=== PATIENT | male | born 1950 | race Caucasian/White ===

== ENCOUNTER 2023-10-11 18:37 | Outpatient (CLI) | payer MEDICARE, BC, SELFPAY ==
[2023-10-15 18:00] LABS: DPYD Phenotype Normal metabolizer
== END 2023-10-11 18:38 | disposition home or self-care (01) ==
LOC: LBO 18:46
PROVIDERS: PCP Internal Medicine; Visit Provider Internal Medicine Hematology & Oncology
DX: C20 Malignant neoplasm of rectum (principal); C78.7 Secondary malignant neoplasm of liver and intrahepatic bile duct
CPT/HCPCS: 36415; 81232

== ENCOUNTER 2023-11-29 02:42 | Outpatient (RCR) | payer MEDICARE, BC, SELFPAY ==
[2023-11-03 09:54] VITALS: BP 138/73; PULSE 92; RESP 16; TEMP 36.5; O2SAT 97
[2023-11-15] MEDS: Normal Saline Flush 10 ML SYR IVP (09:46)
[2023-11-15 10:14] LABS: Abs Immature Grans 0.02 10^3/uL (0.0-0.06); Absolute Basophil Count 0.02 10^3/uL (0.0-0.2); Absolute Eosinophil Count 0.22 10^3/uL (0.0-0.7); Absolute Lymphocyte Count 0.89 10^3/uL (1.2-3.4); Absolute Monocyte Count 0.47 10^3/uL (0.1-0.8); Absolute Neutrophil Count 4.44 10^3/uL (1.2-6.7); Basophils % 0.3; Eosinophils % 3.6; HCT 43.3 % (40.0-50.0); HGB 14.1 g/dL (13.5-17.5); Immature Grans % 0.3; Lymphocytes % 14.7; MCH 27.3 pg (27.0-33.0); MCHC 32.6 % (32.0-36.0); MCV 84 fL (80-95); MPV 9.1 fL (8.0-11.0); Monocytes % 7.8; Neutrophils % 73.3; Platelet Count 230 10^3/uL (130-400); RBC 5.16 10^6/uL (4.36-5.78); RDW 14.6 % (11.8-14.1); RDW-SD 43.9 fL; WBC 6.06 10^3/uL (4.4-10.8)
[2023-11-15 10:23] LABS: ALT 22 U/L (16-63); AST 16 U/L (15-37); Alkaline Phosphatase 92 U/L (46-116); Anion Gap 3.8 mmol/L (3-11); BUN 9 mg/dL (7-18); Bilirubin, Total 0.7 mg/dL (0.2-1.0); CO2 29.2 mmol/L (21.0-32.0); CREATININE 0.8 mg/dL (0.70-1.30); Calcium 8.7 mg/dL (8.5-10.1); Chloride 104 mmol/L (98-107); Estimated GFR 94.62 (mL/min/1.73m2); Glucose 105 mg/dL (74-106); Magnesium 1.8 mg/dL (1.8-2.4); Potassium 3.8 mmol/L (3.5-5.1); Sodium 137 mmol/L (136-145); Total Protein 6.7 g/dL (6.4-8.2)
[2023-11-15 21:11] LABS: CEA 4.5 ng/mL (See Note)
[2023-11-29] MEDS: Normal Saline Flush 10 ML SYR IVP (08:40)
[2023-11-29 09:04] LABS: Abs Immature Grans 0.02 10^3/uL (0.0-0.06); Absolute Basophil Count 0.02 10^3/uL (0.0-0.2); Absolute Eosinophil Count 0.15 10^3/uL (0.0-0.7); Absolute Lymphocyte Count 0.83 10^3/uL (1.2-3.4); Absolute Monocyte Count 0.58 10^3/uL (0.1-0.8); Absolute Neutrophil Count 2.96 10^3/uL (1.2-6.7); Basophils % 0.4; Eosinophils % 3.3; HCT 42.5 % (40.0-50.0); HGB 13.9 g/dL (13.5-17.5); Immature Grans % 0.4; Lymphocytes % 18.2; MCH 27.3 pg (27.0-33.0); MCHC 32.7 % (32.0-36.0); MCV 84 fL (80-95); MPV 8.9 fL (8.0-11.0); Monocytes % 12.7; Platelet Count 166 10^3/uL (130-400); RBC 5.09 10^6/uL (4.36-5.78); RDW 15.4 % (11.8-14.1); RDW-SD 45.2 fL; WBC 4.56 10^3/uL (4.4-10.8)
[2023-11-29 09:22] LABS: ALT 19 U/L (16-63); AST 21 U/L (15-37); Albumin 2.9 g/dL (3.4-5.0); Alkaline Phosphatase 103 U/L (46-116); Anion Gap 7.4 mmol/L (3-11); BUN 10 mg/dL (7-18); Bilirubin, Total 0.7 mg/dL (0.2-1.0); CO2 27.6 mmol/L (21.0-32.0); CREATININE 0.8 mg/dL (0.70-1.30); Calcium 8.9 mg/dL (8.5-10.1); Chloride 104 mmol/L (98-107); Estimated GFR 94.62 (mL/min/1.73m2); Glucose 104 mg/dL (74-106); Magnesium 1.9 mg/dL (1.8-2.4); Sodium 139 mmol/L (136-145); Total Protein 6.7 g/dL (6.4-8.2)
[2023-11-30 13:02] LABS: CEA 4.3 ng/mL (See Note)
== END 2023-12-01 23:59 | disposition home or self-care (01) ==
LOC: INF 02:42
PROVIDERS: PCP Internal Medicine; Visit Provider Internal Medicine Hematology & Oncology
DX: C20 Malignant neoplasm of rectum (principal); C78.7 Secondary malignant neoplasm of liver and intrahepatic bile duct; Z45.2 Encounter for adjustment and management of vascular access device
CPT/HCPCS: 36591; 80053; 96523; 82378; 83735; 85025

== ENCOUNTER 2023-12-27 01:12 | Outpatient (RCR) | payer MEDICARE, BC, SELFPAY ==
[2023-12-02 00:10] VITALS: BP 138/73; PULSE 92; RESP 16; TEMP 36.5
[2023-12-13] MEDS: Normal Saline Flush 10 ML SYR IVP (10:13)
[2023-12-13 10:26] LABS: Abs Immature Grans 0.02 10^3/uL (0.0-0.06); Absolute Basophil Count 0.05 10^3/uL (0.0-0.2); Absolute Eosinophil Count 0.22 10^3/uL (0.0-0.7); Absolute Lymphocyte Count 0.92 10^3/uL (1.2-3.4); Absolute Monocyte Count 0.66 10^3/uL (0.1-0.8); Absolute Neutrophil Count 4.29 10^3/uL (1.2-6.7); Basophils % 0.8; Eosinophils % 3.6; HCT 43.8 % (40.0-50.0); Immature Grans % 0.3; Lymphocytes % 14.9; MCH 26.8 pg (27.0-33.0); MCV 84 fL (80-95); MPV 9.1 fL (8.0-11.0); Monocytes % 10.7; Neutrophils % 69.7; Platelet Count 133 10^3/uL (130-400); RBC 5.23 10^6/uL (4.36-5.78); RDW 15.9 % (11.8-14.1); RDW-SD 46.6 fL; WBC 6.16 10^3/uL (4.4-10.8)
[2023-12-13 10:58] LABS: ALT 20 U/L (16-63); AST 21 U/L (15-37); Alkaline Phosphatase 111 U/L (46-116); Anion Gap 6.6 mmol/L (3-11); BUN 8 mg/dL (7-18); CO2 29.4 mmol/L (21.0-32.0); CREATININE 0.7 mg/dL (0.70-1.30); Calcium 9.1 mg/dL (8.5-10.1); Chloride 104 mmol/L (98-107); Estimated GFR 98.51 (mL/min/1.73m2); Glucose 96 mg/dL (74-106); Magnesium 1.7 mg/dL (1.8-2.4); Potassium 3.5 mmol/L (3.5-5.1); Sodium 140 mmol/L (136-145); Total Protein 6.5 g/dL (6.4-8.2)
[2023-12-13 19:11] LABS: CEA 3.5 ng/mL (See Note)
[2023-12-27 08:21] LABS: Abs Immature Grans 0.02 10^3/uL (0.0-0.06); Absolute Basophil Count 0.02 10^3/uL (0.0-0.2); Absolute Eosinophil Count 0.11 10^3/uL (0.0-0.7); Absolute Lymphocyte Count 0.62 10^3/uL (1.2-3.4); Absolute Monocyte Count 0.33 10^3/uL (0.1-0.8); Absolute Neutrophil Count 2.82 10^3/uL (1.2-6.7); Basophils % 0.5; Eosinophils % 2.8; HCT 41.1 % (40.0-50.0); HGB 13.3 g/dL (13.5-17.5); Immature Grans % 0.5; Lymphocytes % 15.8; MCH 27.4 pg (27.0-33.0); MCHC 32.4 % (32.0-36.0); MCV 85 fL (80-95); MPV 9.5 fL (8.0-11.0); Monocytes % 8.4; Platelet Count 135 10^3/uL (130-400); RBC 4.86 10^6/uL (4.36-5.78); RDW 16.6 % (11.8-14.1); RDW-SD 49.6 fL; WBC 3.92 10^3/uL (4.4-10.8)
[2023-12-27 08:43] LABS: ALT 20 U/L (16-63); AST 26 U/L (15-37); Albumin 2.8 g/dL (3.4-5.0); Alkaline Phosphatase 85 U/L (46-116); BUN 7 mg/dL (7-18); Bilirubin, Total 0.7 mg/dL (0.2-1.0); CREATININE 0.7 mg/dL (0.70-1.30); Chloride 106 mmol/L (98-107); Estimated GFR 98.51 (mL/min/1.73m2); Glucose 152 mg/dL (74-106); Magnesium 1.6 mg/dL (1.8-2.4); Potassium 3.9 mmol/L (3.5-5.1); Sodium 141 mmol/L (136-145); Total Protein 6.3 g/dL (6.4-8.2)
[2023-12-27] MEDS: Normal Saline Flush 10 ML SYR IVP (09:09)
== END 2024-01-01 23:59 | disposition home or self-care (01) ==
LOC: INF 01:12
PROVIDERS: PCP Internal Medicine; Visit Provider Internal Medicine Hematology & Oncology
DX: C20 Malignant neoplasm of rectum (principal); C78.7 Secondary malignant neoplasm of liver and intrahepatic bile duct; Z45.2 Encounter for adjustment and management of vascular access device
CPT/HCPCS: 36591; 80053; 82378; 83735; 85025

== ENCOUNTER 2024-01-24 00:56 | Outpatient (RCR) | payer MEDICARE, BC, SELFPAY ==
[2024-01-02 00:20] VITALS: BP 138/73; PULSE 92; RESP 16; TEMP 36.5
[2024-01-10 10:01] LABS: Abs Immature Grans 0.01 10^3/uL (0.0-0.06); Absolute Basophil Count 0.04 10^3/uL (0.0-0.2); Absolute Lymphocyte Count 0.84 10^3/uL (1.2-3.4); Absolute Monocyte Count 0.46 10^3/uL (0.1-0.8); Basophils % 0.9; Eosinophils % 2.3; HCT 42.4 % (40.0-50.0); HGB 13.5 g/dL (13.5-17.5); Immature Grans % 0.2; Lymphocytes % 19.7; MCHC 31.8 % (32.0-36.0); MCV 85 fL (80-95); MPV 9.3 fL (8.0-11.0); Monocytes % 10.8; Neutrophils % 66.1; Platelet Count 133 10^3/uL (130-400); RDW 16.8 % (11.8-14.1); WBC 4.26 10^3/uL (4.4-10.8)
[2024-01-10 10:04] LABS: Absolute Neutrophil Count 2.82 10^3/uL (1.2-6.7)
[2024-01-10 10:16] LABS: ALT 21 U/L (16-63); AST 30 U/L (15-37); Albumin 2.9 g/dL (3.4-5.0); Alkaline Phosphatase 107 U/L (46-116); Anion Gap 8.4 mmol/L (3-11); BUN 9 mg/dL (7-18); Bilirubin, Total 0.8 mg/dL (0.2-1.0); CO2 27.6 mmol/L (21.0-32.0); CREATININE 0.6 mg/dL (0.70-1.30); Calcium 8.8 mg/dL (8.5-10.1); Chloride 105 mmol/L (98-107); Glucose 97 mg/dL (74-106); Magnesium 1.7 mg/dL (1.8-2.4); Potassium 3.6 mmol/L (3.5-5.1); Sodium 141 mmol/L (136-145); Total Protein 6.3 g/dL (6.4-8.2)
[2024-01-10] MEDS: Normal Saline Flush 10 ML SYR IVP (10:57)
[2024-01-10 18:24] LABS: CEA 3.3 ng/mL (See Note)
[2024-01-24] MEDS: Normal Saline Flush 10 ML SYR IVP (07:59)
[2024-01-24 08:10] LABS: Abs Immature Grans 0.01 10^3/uL (0.0-0.06); Absolute Basophil Count 0.03 10^3/uL (0.0-0.2); Absolute Eosinophil Count 0.13 10^3/uL (0.0-0.7); Absolute Monocyte Count 0.37 10^3/uL (0.1-0.8); Absolute Neutrophil Count 2.14 10^3/uL (1.2-6.7); Basophils % 0.9; HCT 42.7 % (40.0-50.0); HGB 13.8 g/dL (13.5-17.5); Immature Grans % 0.3; Lymphocytes % 18.3; MCH 27.5 pg (27.0-33.0); MCHC 32.3 % (32.0-36.0); MCV 85 fL (80-95); MPV 9.7 fL (8.0-11.0); Monocytes % 11.3; Neutrophils % 65.2; Platelet Count 116 10^3/uL (130-400); RBC 5.02 10^6/uL (4.36-5.78); RDW-SD 51.3 fL; WBC 3.28 10^3/uL (4.4-10.8)
[2024-01-24 08:28] LABS: ALT 22 U/L (16-63); AST 33 U/L (15-37); Albumin 2.8 g/dL (3.4-5.0); Alkaline Phosphatase 113 U/L (46-116); Anion Gap 8.7 mmol/L (3-11); BUN 5 mg/dL (7-18); CO2 29.3 mmol/L (21.0-32.0); CREATININE 0.7 mg/dL (0.70-1.30); Chloride 105 mmol/L (98-107); Estimated GFR 98.51 (mL/min/1.73m2); Glucose 147 mg/dL (74-106); Magnesium 1.6 mg/dL (1.8-2.4); Potassium 3.5 mmol/L (3.5-5.1); Sodium 143 mmol/L (136-145); Total Protein 6.3 g/dL (6.4-8.2)
[2024-01-24 18:25] LABS: CEA 4.4 ng/mL (See Note)
== END 2024-01-30 23:59 | disposition home or self-care (01) ==
LOC: INF 00:56
PROVIDERS: PCP Internal Medicine; Visit Provider Internal Medicine Hematology & Oncology
DX: C20 Malignant neoplasm of rectum (principal); C78.7 Secondary malignant neoplasm of liver and intrahepatic bile duct; Z45.2 Encounter for adjustment and management of vascular access device
CPT/HCPCS: 36591; 80053; 82378; 83735; 85025

== ENCOUNTER 2024-02-21 01:01 | Outpatient (RCR) | payer MEDICARE, BC, SELFPAY ==
[2024-01-31 00:07] VITALS: BP 138/73; PULSE 92; RESP 16; TEMP 36.5
[2024-02-07] MEDS: Normal Saline Flush 10 ML SYR IVP (09:37)
[2024-02-07 10:15] LABS: Abs Immature Grans 0.01 10^3/uL (0.0-0.06); Absolute Basophil Count 0.02 10^3/uL (0.0-0.2); Absolute Eosinophil Count 0.07 10^3/uL (0.0-0.7); Absolute Lymphocyte Count 0.71 10^3/uL (1.2-3.4); Absolute Monocyte Count 0.47 10^3/uL (0.1-0.8); Absolute Neutrophil Count 1.75 10^3/uL (1.2-6.7); Basophils % 0.7; Eosinophils % 2.3; HGB 13.4 g/dL (13.5-17.5); Immature Grans % 0.3; Lymphocytes % 23.4; MCH 27.5 pg (27.0-33.0); MCHC 31.9 % (32.0-36.0); MCV 86 fL (80-95); MPV 9.2 fL (8.0-11.0); Monocytes % 15.5; Neutrophils % 57.8; Platelet Count 115 10^3/uL (130-400); RBC 4.88 10^6/uL (4.36-5.78); RDW-SD 52.7 fL; WBC 3.03 10^3/uL (4.4-10.8)
[2024-02-07 10:38] LABS: ALT 22 U/L (16-63); AST 36 U/L (15-37); Albumin 2.8 g/dL (3.4-5.0); Alkaline Phosphatase 99 U/L (46-116); Anion Gap 4.8 mmol/L (3-11); BUN 8 mg/dL (7-18); Bilirubin, Total 0.9 mg/dL (0.2-1.0); CO2 30.2 mmol/L (21.0-32.0); CREATININE 0.7 mg/dL (0.70-1.30); Chloride 107 mmol/L (98-107); Estimated GFR 98.51 (mL/min/1.73m2); Glucose 111 mg/dL (74-106); Magnesium 1.5 mg/dL (1.8-2.4); Potassium 3.7 mmol/L (3.5-5.1); Sodium 142 mmol/L (136-145); Total Protein 6.3 g/dL (6.4-8.2)
[2024-02-07 20:50] LABS: CEA 3.9 ng/mL (See Note)
[2024-02-21] MEDS: Normal Saline Flush 10 ML SYR IVP (08:20)
[2024-02-21 08:33] LABS: Abs Immature Grans 0.03 10^3/uL (0.0-0.06); Absolute Basophil Count 0.03 10^3/uL (0.0-0.2); Absolute Eosinophil Count 0.11 10^3/uL (0.0-0.7); Absolute Lymphocyte Count 0.76 10^3/uL (1.2-3.4); Absolute Monocyte Count 0.43 10^3/uL (0.1-0.8); Absolute Neutrophil Count 5.93 10^3/uL (1.2-6.7); Basophils % 0.4; Eosinophils % 1.5; HCT 41.3 % (40.0-50.0); HGB 13.1 g/dL (13.5-17.5); Immature Grans % 0.4; Lymphocytes % 10.4; MCH 27.6 pg (27.0-33.0); MCHC 31.7 % (32.0-36.0); MCV 87 fL (80-95); MPV 9.5 fL (8.0-11.0); Monocytes % 5.9; Neutrophils % 81.4; Platelet Count 141 10^3/uL (130-400); RBC 4.74 10^6/uL (4.36-5.78); RDW 16.8 % (11.8-14.1); RDW-SD 54.3 fL; WBC 7.29 10^3/uL (4.4-10.8)
[2024-02-21 08:52] LABS: ALT 60 U/L (16-63); AST 93 U/L (15-37); Albumin 2.7 g/dL (3.4-5.0); Alkaline Phosphatase 167 U/L (46-116); Anion Gap 8.6 mmol/L (3-11); BUN 8 mg/dL (7-18); Bilirubin, Total 1.2 mg/dL (0.2-1.0); CO2 26.4 mmol/L (21.0-32.0); CREATININE 0.7 mg/dL (0.70-1.30); Calcium 8.8 mg/dL (8.5-10.1); Chloride 107 mmol/L (98-107); Estimated GFR 98.51 (mL/min/1.73m2); Glucose 131 mg/dL (74-106); Magnesium 1.7 mg/dL (1.8-2.4); Potassium 3.8 mmol/L (3.5-5.1); Sodium 142 mmol/L (136-145); Total Protein 6.6 g/dL (6.4-8.2)
[2024-02-21 17:21] LABS: CEA 2.6 ng/mL (See Note)
== END 2024-03-01 23:59 | disposition home or self-care (01) ==
LOC: INF 01:01
PROVIDERS: PCP Internal Medicine; Visit Provider Internal Medicine Hematology & Oncology
DX: C20 Malignant neoplasm of rectum (principal); C78.7 Secondary malignant neoplasm of liver and intrahepatic bile duct; Z45.2 Encounter for adjustment and management of vascular access device
CPT/HCPCS: 36591; 80053; 82378; 83735; 85025

== ENCOUNTER 2024-03-20 01:41 | Outpatient (RCR) | payer MEDICARE, BC, SELFPAY ==
[2024-03-02 00:04] VITALS: BP 138/73; PULSE 92; RESP 16; TEMP 36.5
[2024-03-06] MEDS: Normal Saline Flush 10 ML SYR IVP (09:12)
[2024-03-06 09:25] LABS: Abs Immature Grans 0.01 10^3/uL (0.0-0.06); Absolute Basophil Count 0.02 10^3/uL (0.0-0.2); Absolute Eosinophil Count 0.13 10^3/uL (0.0-0.7); Absolute Lymphocyte Count 0.64 10^3/uL (1.2-3.4); Absolute Monocyte Count 0.38 10^3/uL (0.1-0.8); Absolute Neutrophil Count 2.72 10^3/uL (1.2-6.7); Basophils % 0.5; Eosinophils % 3.3; HCT 38.5 % (40.0-50.0); HGB 12.7 g/dL (13.5-17.5); Immature Grans % 0.3; Lymphocytes % 16.4; MCH 28.5 pg (27.0-33.0); MCV 87 fL (80-95); MPV 9.2 fL (8.0-11.0); Monocytes % 9.7; Neutrophils % 69.8; Platelet Count 126 10^3/uL (130-400); RBC 4.45 10^6/uL (4.36-5.78); RDW 15.6 % (11.8-14.1); RDW-SD 48.9 fL
[2024-03-06 09:41] LABS: ALT 24 U/L (16-63); AST 39 U/L (15-37); Albumin 2.8 g/dL (3.4-5.0); Alkaline Phosphatase 114 U/L (46-116); Anion Gap 8.4 mmol/L (3-11); BUN 9 mg/dL (7-18); Bilirubin, Total 0.8 mg/dL (0.2-1.0); CO2 28.6 mmol/L (21.0-32.0); CREATININE 0.7 mg/dL (0.70-1.30); Calcium 8.9 mg/dL (8.5-10.1); Chloride 105 mmol/L (98-107); Estimated GFR 98.51 (mL/min/1.73m2); Glucose 94 mg/dL (74-106); Magnesium 1.5 mg/dL (1.8-2.4); Potassium 3.8 mmol/L (3.5-5.1); Sodium 142 mmol/L (136-145); Total Protein 6.4 g/dL (6.4-8.2)
[2024-03-06 18:00] LABS: CEA 2.8 ng/mL (See Note)
[2024-03-20] MEDS: Normal Saline Flush 10 ML SYR IVP (09:05)
[2024-03-20 09:32] LABS: Absolute Basophil Count 0.01 10^3/uL (0.0-0.2); Absolute Eosinophil Count 0.06 10^3/uL (0.0-0.7); Absolute Monocyte Count 0.26 10^3/uL (0.1-0.8); Absolute Neutrophil Count 1.38 10^3/uL (1.2-6.7); Basophils % 0.4; Eosinophils % 2.6; HCT 37.6 % (40.0-50.0); HGB 12.1 g/dL (13.5-17.5); MCH 27.7 pg (27.0-33.0); MCHC 32.2 % (32.0-36.0); MCV 86 fL (80-95); MPV 8.9 fL (8.0-11.0); Monocytes % 11.3; Neutrophils % 59.7; Platelet Count 132 10^3/uL (130-400); RBC 4.37 10^6/uL (4.36-5.78); RDW 15.2 % (11.8-14.1); RDW-SD 47.8 fL; WBC 2.31 10^3/uL (4.4-10.8)
[2024-03-20 09:47] LABS: ALT 19 U/L (16-63); AST 25 U/L (15-37); Albumin 2.8 g/dL (3.4-5.0); Alkaline Phosphatase 98 U/L (46-116); Anion Gap 5.7 mmol/L (3-11); BUN 13 mg/dL (7-18); Bilirubin, Total 0.6 mg/dL (0.2-1.0); CO2 29.3 mmol/L (21.0-32.0); CREATININE 0.8 mg/dL (0.70-1.30); Calcium 8.9 mg/dL (8.5-10.1); Chloride 107 mmol/L (98-107); Estimated GFR 94.62 (mL/min/1.73m2); Glucose 107 mg/dL (74-106); Magnesium 1.9 mg/dL (1.8-2.4); Potassium 3.6 mmol/L (3.5-5.1); Sodium 142 mmol/L (136-145); Total Protein 6.4 g/dL (6.4-8.2)
[2024-03-20 18:19] LABS: CEA 2.8 ng/mL (See Note)
== END 2024-03-31 23:59 | disposition home or self-care (01) ==
LOC: INF 01:41
PROVIDERS: PCP Internal Medicine; Visit Provider Internal Medicine Hematology & Oncology
DX: C20 Malignant neoplasm of rectum (principal); C78.7 Secondary malignant neoplasm of liver and intrahepatic bile duct; C79.51 Secondary malignant neoplasm of bone; Z79.899 Other long term (current) drug therapy; Z45.2 Encounter for adjustment and management of vascular access device
CPT/HCPCS: 36591; 80053; 82378; 83735; 85025

== ENCOUNTER 2024-05-01 00:36 | Outpatient (RCR) | payer MEDICARE, SELFPAY ==
[2024-04-01 00:20] VITALS: BP 138/73; PULSE 92; RESP 16; TEMP 36.5
[2024-04-03] MEDS: Normal Saline Flush 10 ML SYR IVP (09:02)
[2024-04-03 09:16] LABS: HGB 12.1 g/dL (13.5-17.5); MCH 27.5 pg (27.0-33.0); MCHC 31.8 % (32.0-36.0); MCV 86 fL (80-95); MPV 8.9 fL (8.0-11.0); Platelet Count 138 10^3/uL (130-400); RDW 15.3 % (11.8-14.1); RDW-SD 48.1 fL
[2024-04-03 09:23] LABS: Bilirubin Small (Negative); Blood Negative (Negative); Clarity Clear (Clear); Glucose Negative (Negative); Ketones Trace mg/dL (Negative); Leukocyte Esterase Negative (Negative); Nitrite Negative (Negative); Specific Gravity 1.025 (1.005-1.025); pH 5.5 (5-8)
[2024-04-03 09:29] LABS: ALT 19 U/L (16-63); AST 26 U/L (15-37); Albumin 2.8 g/dL (3.4-5.0); Alkaline Phosphatase 100 U/L (46-116); Anion Gap 5.8 mmol/L (3-11); BUN 8 mg/dL (7-18); Bilirubin, Total 0.8 mg/dL (0.2-1.0); CO2 31.2 mmol/L (21.0-32.0); CREATININE 0.8 mg/dL (0.70-1.30); Calcium 8.8 mg/dL (8.5-10.1); Chloride 105 mmol/L (98-107); Estimated GFR 94.62 (mL/min/1.73m2); Glucose 133 mg/dL (74-106); Magnesium 1.9 mg/dL (1.8-2.4); Potassium 3.4 mmol/L (3.5-5.1); Sodium 142 mmol/L (136-145); Total Protein 6.3 g/dL (6.4-8.2)
[2024-04-03 09:43] LABS: WBC 1.78 10^3/uL (4.4-10.8)
[2024-04-03 09:44] LABS: Absolute Eosinophil Count 0.11 10^3/uL (0.0-0.7); Absolute Lymphocyte Count 0.73 10^3/uL (1.2-3.4); Absolute Monocyte Count 0.18 10^3/uL (0.1-0.8); Absolute Neutrophil Count 0.77 10^3/uL (1.2-6.7); Atypical Lymphocytes % 4 %; Diff Comment Manual Differential; RBC Morphology Normal
[2024-04-03 18:23] LABS: CEA 2.5 ng/mL (See Note)
[2024-04-17] MEDS: Normal Saline Flush 10 ML SYR IVP (09:13)
[2024-04-17 09:22] LABS: Abs Immature Grans 0.03 10^3/uL (0.0-0.06); Absolute Basophil Count 0.05 10^3/uL (0.0-0.2); Absolute Eosinophil Count 0.11 10^3/uL (0.0-0.7); Absolute Monocyte Count 0.67 10^3/uL (0.1-0.8); Absolute Neutrophil Count 5.86 10^3/uL (1.2-6.7); Basophils % 0.7 %; Eosinophils % 1.5 %; HCT 38.9 % (40.0-50.0); HGB 12.3 g/dL (13.5-17.5); Immature Grans % 0.4 %; Lymphocytes % 10.6 %; MCH 27.9 pg (27.0-33.0); MCHC 31.6 % (32.0-36.0); MCV 88 fL (80-95); MPV 9.4 fL (8.0-11.0); Monocytes % 8.9 %; Neutrophils % 77.9 %; Platelet Count 190 10^3/uL (130-400); RBC 4.41 10^6/uL (4.36-5.78); RDW 16.2 % (11.8-14.1); RDW-SD 53.1 fL; WBC 7.52 10^3/uL (4.4-10.8)
[2024-04-17 09:25] LABS: Bilirubin Negative (Negative); Blood Small (Negative); Clarity Sl Cloudy (Clear); Glucose Negative (Negative); Ketones Negative (Negative); Leukocyte Esterase Small (Negative); Nitrite Negative (Negative); Specific Gravity 1.015 (1.005-1.025)
[2024-04-17 09:34] LABS: Bacteria Rare HPF (Negative); C & S Indicated? Yes; Casts Negative LPF (Negative); Crystals Negative HPF (Negative); Epithelial Cells Few HPF (Negative); Mucus Trace (Negative); WBC 20-50 HPF (0-5)
[2024-04-17 09:38] LABS: ALT 39 U/L (16-63); AST 64 U/L (15-37); Albumin 2.8 g/dL (3.4-5.0); Alkaline Phosphatase 182 U/L (46-116); Anion Gap 6.8 mmol/L (3-11); BUN 11 mg/dL (7-18); Bilirubin, Total 0.9 mg/dL (0.2-1.0); CO2 27.2 mmol/L (21.0-32.0); CREATININE 0.7 mg/dL (0.70-1.30); Calcium 8.7 mg/dL (8.5-10.1); Chloride 103 mmol/L (98-107); Estimated GFR 98.51 (mL/min/1.73m2); Glucose 95 mg/dL (74-106); Potassium 4.4 mmol/L (3.5-5.1); Sodium 137 mmol/L (136-145); Total Protein 6.7 g/dL (6.4-8.2)
[2024-04-17 19:02] LABS: CEA 2.1 ng/mL (See Note)
[2024-05-01] MEDS: Normal Saline Flush 10 ML SYR IVP (07:54)
[2024-05-01 08:18] LABS: Abs Immature Grans 0.02 10^3/uL (0.0-0.06); Absolute Basophil Count 0.01 10^3/uL (0.0-0.2); Absolute Lymphocyte Count 0.32 10^3/uL (1.2-3.4); Absolute Neutrophil Count 3.16 10^3/uL (1.2-6.7); Basophils % 0.2 %; HCT 35.3 % (40.0-50.0); HGB 11.4 g/dL (13.5-17.5); Immature Grans % 0.5 %; MCH 27.6 pg (27.0-33.0); MCHC 32.3 % (32.0-36.0); MCV 86 fL (80-95); Monocytes % 12.5 %; Neutrophils % 78.8 %; Platelet Count 171 10^3/uL (130-400); RBC 4.13 10^6/uL (4.36-5.78); RDW 15.5 % (11.8-14.1); WBC 4.01 10^3/uL (4.4-10.8)
[2024-05-01 08:26] LABS: Bilirubin Moderate (Negative); Blood Large (Negative); Clarity Sl Cloudy (Clear); Glucose Negative (Negative); Ketones Trace mg/dL (Negative); Leukocyte Esterase Trace (Negative); Nitrite Negative (Negative); Specific Gravity 1.025 (1.005-1.025); pH 5.5 (5-8)
[2024-05-01 08:27] LABS: C & S Indicated? Yes; RBC >50 HPF (0-2)
[2024-05-01 08:36] LABS: ALT 130 U/L (16-63); AST 219 U/L (15-37); Albumin 2.7 g/dL (3.4-5.0); Alkaline Phosphatase 292 U/L (46-116); Anion Gap 9.7 mmol/L (3-11); BUN 14 mg/dL (7-18); Bilirubin, Total 1.6 mg/dL (0.2-1.0); CO2 26.3 mmol/L (21.0-32.0); Chloride 101 mmol/L (98-107); Estimated GFR 80.47 (mL/min/1.73m2); Glucose 153 mg/dL (74-106); Sodium 137 mmol/L (136-145); Total Protein 6.7 g/dL (6.4-8.2)
[2024-05-01 18:26] LABS: CEA 2.6 ng/mL (See Note)
== END 2024-05-01 23:59 | disposition home or self-care (01) ==
LOC: INF 00:36
PROVIDERS: PCP Internal Medicine; Visit Provider Internal Medicine Hematology & Oncology
DX: C79.9 Secondary malignant neoplasm of unspecified site (principal); C20 Malignant neoplasm of rectum; Z79.899 Other long term (current) drug therapy; C78.7 Secondary malignant neoplasm of liver and intrahepatic bile duct; Z45.2 Encounter for adjustment and management of vascular access device
CPT/HCPCS: 36591; 80053; 81003; 81015; 82378; 83735; 85025; 87086

== ENCOUNTER 2024-05-01 09:26 | Inpatient (IN) | payer MEDICARE, BC, SELFPAY ==
[2024-05-01] VITALS (61 sets, daily range): BP systolic 78–142; BP diastolic 41–100; PULSE 88–161; RESP 16–37; TEMP 36.6–39.1; O2SAT 88–99
--- NOTE | 2024-05-01 09:43 | ED.GENADUL_ITS ---
Discharge Plan Disposition Patient Disposition: Admit to [facility] Condition: Stable Discharge Details Clinical Impression: Urinary tract infection, Hydronephrosis of right kidney Admit Date/Time: 05/01/24 13:17 Admit Provider: Hang Corley Attending Provider: Hang Corley Primary Care Provider: Erick Perez ED Provider: Jan Meadows [facility] General Date/Time Provider Initiated Documentation: 05/01/24 09:36 . HPI Narrative: 73 year-old male with stage IV colon CA with known liver mets and known sacral bone lesion, presents to ED today by POV/ambulating with a chief complaint of se nt from outpatient lab draw, abnormal labs, and having R flank pain with onset since last night- episode of bloody urine earlier today. Quality described as severe flank pain, chills, some radiation down the anterior R abdomen, no radiation to fever, shortness of breath, chest pain, vomiting. Severity is described as 9/10. Palliating factors include nothing specific attempted. Provoking factors include nothing specific. Events leading up to the incident/Associated Symptoms: Patient last had chemotherapy for about 2 weeks ago. Patient not anticoagulated. Related Data Home Medications Medication Instructions Recorded Confirmed Unknown [No Known Home Meds] 05/01/24 05/01/24 General Stated Complaint: FlankPain BLANCHE: 3 Review of Systems All systems reviewed & are unremarkable except as noted in HPI and below Exam Narrative Exam Narrative: GENERAL APPEARANCE: Well-nourished, non-toxic, awake and alert, atraumatic, no acute distress. SKIN: Warm, pink, dry, intact, without rashes/lesions/ulcerations. HEAD: Normocephalic, atraumatic, normal hair distribution for gender/age. EYES: Pupils PERRLA, EOMs intact without nystagmus, normal conjunctiva, no exudates on lids/lashes. ENT: Nares patent, no circumoral cyanosis, no facial swelling NECK: Supple, trachea midline, painless cervical ROM. LUNGS/CHEST: Lungs CTA bilaterally- no rhonchi/rales/wheezes diffusely, non- labored respirations, normal A/P diameter, symmetrical expansion, no chest wall deformity HEART (CV/PV): Regular rate and rhythm without murmur, no peripheral edema, no JVD. ABDOMEN: Soft, non-distended, no guarding, no anterior abdominal tenderness, R CVA tenderness to percussion, negative Pickens's sign, no McBurney's point tenderness. MSK: Normal ROM, no swelling/deformity to bilateral UEs or LEs, moving all extremities without weakness, no cyanosis, spine midline without tenderness, normal curvature. NEURO: Mental Status AAOx4 - alert to person, place, time, events No facial droop, no forehead involvement. Motor: No focal weakness - strength 5/5 in bilateral UEs and LEs, proximal and distal, symmetric. Sensory: sensation intact to light touch globally. Gait normal: patient ambulated without ataxia into ED room. PSYCH: euthymic, cooperative, pleasant, appropriate speech Course Vital Signs Vital signs: Vital Signs Temperature 37.4 C 05/01/24 09:32 Pulse 92 H 05/01/24 09:32 Respiratory Rate 18 05/01/24 09:32 Blood Pressure 142/62 H 05/01/24 09:32 Pulse Oximetry 96 05/01/24 09:32 Temperature 37.4 C 05/01/24 09:32 Temperature Source Temporal Artery Scan 05/01/24 09:32 Pulse 92 H 05/01/24 09:32 Respiratory Rate 18 05/01/24 09:32 Blood Pressure 142/62 H 05/01/24 09:32 Blood Pressure Position Sitting 05/01/24 09:32 Pulse Oximetry 96 05/01/24 09:32 Oxygen Delivery Method Room Air 05/01/24 09:32 Oxygen Flow Rate 0 05/01/24 09:32 Medical Decision Making This dictation utilizes [id number] dictation software and may contain unedited grammatical errors. 73 y/o M presents to ED today with a chief complaint of fever and shaking, right flank pain with hematuria, patient is an active stage IV colon cancer patient with known large liver mets and sacral mets. He has no known history of right- sided renal stones, endorses onset since last night and had outpatient labs performed at cancer center today. The last time he received chemotherapy was 2 weeks ago. Patient is actively treating his cancer and would like to continue to do so. Patients' medical history: Stage IV colon cancer, kidney stones. Family and social history: Lives at home with his who is a former nurse, eats well, exercises. Pertinent exam findings / vital signs include right CVA tenderness with mild anterior right-sided abdominal tenderness, nontoxic vitals, neuro intact. Differential / pathologies of concern include obstructive uropathy, sepsis, UTI, renal colic. Diagnostic studies of: -UA, lactate, lipase, liver panel, procalcitonin, CT abdomen pelvis with and without contrast, blood cultures. -Labs earlier today show white blood cell count of 4, patient has active cancer, hemoglobin is 11.4 - no RUBA on metabolic panel -Lactate mildly elevated at 1.8, procal 0.5, concern sepsis -UA shows 10-20 WBCs -Lipase wnl -LFTs are elevated chronically with known liver mets -CT shows R ureter dilated without radioopaque stone- possible passed kidney stone, some R sided hydronephrosis and known chronic metastatic findings Interventions of: -IV Saline, IV Tylenol 1g, 15mg IV Ketorlac, 4mg IV Zofran, 0.5 hydromorphone q4hr, IV Ceftriaxone. -Consulted hospitalist, left message for Dr. Cat but he is out of office on Fridays ED Course/Assessment/Plan: 73-year-old male presents with rigors and shakes, has right sided flank pain as well as some hematuria, he is a known stage IV colon cancer patient with liver and sacral mets. He last had chemotherapy 2 weeks ago, he is immune suppressed, I am concerned for possible sepsis with elevated procalcitonin and mildly elevated lactate. He has evidence of UTI on UA and evidence of possible non- radiopaque stone versus passed stone, I have a low suspicion for non-radiopaque stone as he has radiopaque calculi contralaterally. Patient has remained afebrile by oral temp here but is in rigors here in the department, giving IV fluids and antibiotics and plan to admit the patient to the hospitalist service. Dr. Corley accepted for admission at 1330. Findings not consistent with ureteral stone, complete urinary obstruction - is making urine here in ED. Disposition of hydronephrosis of right kidney, urinary tract infection. Patient verbalized understanding of the plan and return to ED criteria and engaged in shared decision making. Medical Records Medical records reviewed: Yes I reviewed the patient's medical records. Imaging Data Radiologic Study: Attestation: I personally reviewed and interpreted this imaging study as follows: Imaging: CT Scan Radiologist's impression: EXAM: CT ABDOMEN PELVIS WO/W CLINICAL HISTORY: renal colic, active stage 4 colon CA w liver mets. TECHNIQUE: Imaging Protocol: Axial computed tomography images with coronal and sagittal reformatted images were created and reviewed. COMPARISON: No exams were available for comparison FINDINGS: Lung Bases: Lymph node anterior to heart. Mild nodularity along the pleural surface of the diaphragm. Liver: Normal density. Large mass involving portion of left an large portion of the right lobe. Gallbladder and biliary tract: No radiodense calculus. No biliary ductal dilation. Pancreas: No abnormal calcifications or inflammatory process. Spleen: Normal size. Kidneys: Right kidney enlarged. Moderate hydronephrosis. Delay in right nephrogram.Multiple small nonobstructing stones involving the right kidney. Right ureter is dilated to the level of the distal ureter. No obstructing stone is visible. No masses seen. Adrenal glands: No mass is seen. Lymph nodes: Large lymph nodes are present in the region of the eddie hepatis and celiac axis. Multiple small but abnormal enlarged para-aortic lymph nodes. Vasculature: Abdominal aorta non-dilated. Bladder:Empty. No stone visible. Bowel: No obstruction. Diverticulosis of descending and sigmoid colon.. Focal area of bowel wall thickening in the descending colon with some stranding in the surrounding fat. Findings could represent diverticulitis versus mass. Appendix normal. Peritoneal cavity: No ascites.No free air. No focal collection. Reproductive organs: Within normal limits. Bones: Destructive lesion seen in low sacrum. Soft Tissues: Small fat containing right inguinal hernia IMPRESSION: Moderate right hydronephrosis. Ureter is dilated to the level of the lower ureter. No obstructing stone is seen. Findings could be secondary to a recently passed stone. Large liver metastases. Extensive adenopathy in the eddie hepatis. Abnormal nodes also seen in the para- aortic and pericardial regions. Destructive bony lesion in the sacrum. Question of mass versus focal area of diverticulitis in the upper descending colon. Lab Data Lab results reviewed: Yes I reviewed the patient's lab results. Labs: 05/01/24 11:20 Blood Blood Culture - Pending 05/01/24 10:47 Blood Blood Culture - Pending 05/01/24 09:40 Urine - Reflex from Ua Urine Culture - Pending Laboratory Tests Range/Units 05/01/24 05/01/24 09:40 10:47 VBG Lactate (0.6-1.4) mmol/L 1.8 H Total Bilirubin (0.2-1.0) mg/dL 1.6 H Conjugated Bilirubin (0.0-0.2) mg/dL 0.7 H AST (15-37) U/L 186 H ALT (16-63) U/L 127 H Alkaline Phosphatase (46-116) U/L 296 H Total Protein (6.4-8.2) g/dL 6.8 Albumin (3.4-5.0) g/dL 2.8 L Lipase (16-77) U/L 15 L Procalcitonin ng/mL 0.5 Urine Color (Yellow) Yellow Urine Clarity (Clear) Cloudy Urine pH (5-8) 5.5 Ur Specific [place] (1.005-1.025) 1.020 Urine Protein (Neg-Trace) mg/dL 30 H Urine Ketones (Negative) mg/dL Negative Urine Blood (Negative) Large H Urine Nitrite (Negative) Negative Urine Bilirubin (Negative) Small H Urine Urobilinogen (Up to 0.2) mg/dL 1.0 H Ur Leukocyte Esterase (Negative) Trace H Urine RBC (0-2) HPF >50 H Urine WBC (0-5) HPF 10-20 H Ur Epithelial Cells (Negative) HPF Rare Urine Crystals (Negative) HPF Negative Urine Bacteria (Negative) HPF Few Urine Casts (Negative) LPF Negative Urine Mucus (Negative) Trace Ur Culture Indicated? Yes Urine Glucose (Negative) mg/dL Negative Quality:SDOH Health Related Social Needs: No Data to Display PFSH All Active Problems (Updated 05/01/24 @ 14:25 by JESSICA ABRAHAM) Hydronephrosis of right kidney (Acute) Urinary tract infection (Acute) Social History Smoking risk assessment performed?: No Alcohol Intake: former
[2024-05-01 09:48] LABS: Bilirubin Small (Negative); Blood Large (Negative); Clarity Cloudy (Clear); Glucose Negative (Negative); Ketones Negative (Negative); Leukocyte Esterase Trace (Negative); Nitrite Negative (Negative); pH 5.5 (5-8)
[2024-05-01 09:56] LABS: RBC >50 HPF (0-2)
[2024-05-01 09:58] LABS: Bacteria Few HPF (Negative); C & S Indicated? Yes; Casts Negative LPF (Negative); Crystals Negative HPF (Negative); Epithelial Cells Rare HPF (Negative); Mucus Trace (Negative)
--- NOTE | 2024-05-01 10:00 | DI.CT_ITS ---
Exam(s) CT ABDOMEN PELVIS WO/W EXAM: CT ABDOMEN PELVIS WO/W CLINICAL HISTORY: renal colic, active stage 4 colon CA w liver mets. TECHNIQUE: Imaging Protocol: Axial computed tomography images with coronal and sagittal reformatted images were created and reviewed. COMPARISON: No exams were available for comparison FINDINGS: Lung Bases: Lymph node anterior to heart. Mild nodularity along the pleural surface of the diaphragm. Liver: Normal density. Large mass involving portion of left an large portion of the right lobe. Gallbladder and biliary tract: No radiodense calculus. No biliary ductal dilation. Pancreas: No abnormal calcifications or inflammatory process. Spleen: Normal size. Kidneys: Right kidney enlarged. Moderate hydronephrosis. Delay in right nephrogram.Multiple small n onobstructing stones involving the right kidney. Right ureter is dilated to the level of the distal ureter. No obstructing stone is visible. No masses seen. Adrenal glands: No mass is seen. Lymph nodes: Large lymph nodes are present in the region of the eddie hepatis and celiac axis. Multip le small but abnormal enlarged para-aortic lymph nodes. Vasculature: Abdominal aorta non-dilated. Bladder:Empty. No stone visible. Bowel: No obstruction. Diverticulosis of descending and sigmoid colon.. Focal area of bowel wall thic kening in the descending colon with some stranding in the surrounding fat. Findings could represent d iverticulitis versus mass. Appendix normal. Peritoneal cavity: No ascites.No free air. No focal collection. Reproductive organs: Within normal limits. Bones: Destructive lesion seen in low sacrum. Soft Tissues: Small fat containing right inguinal hernia IMPRESSION: Moderate right hydronephrosis. Ureter is dilated to the level of the lower ureter. No obstructing sto ne is seen. Findings could be secondary to a recently passed stone. Large liver metastases. Extensive adenopathy in the eddie hepatis. Abnormal nodes also seen in the para-aortic and pericardia l regions. Destructive bony lesion in the sacrum. Question of mass versus focal area of diverticulitis in the upper descending colon. Findings called to Dr. Resendez of the emergency department. RADIATION DOSE DELIVERED: 2,804.29mGy.cm Total DLP 2,804.29mGy.cm Total DLP 2,804.29mGy.cm Total DLP DATA REPOSITORY: All CT scans at this facility are submitted to the National Radiology Data Registry (NRDR) Dose Index Registry (DIR) with the [employer] (ACR). RADIATION OPTIMIZATION: All CT scans at this facility use at least one of these dose optimization te chniques: automated exposure control; mA and/or kV adjustment per patient size (includes targeted exa ms where dose is matched to clinical indication); or iterative reconstruction.
[2024-05-01] MEDS: ACETAMINOPHEN 1,000 MG/100 ML BTL 400 MG IVPB (10:50)
[2024-05-01] MEDS: Ketorolac 15 MG/ML VIAL IVP (10:51)
[2024-05-01] MEDS: HYDROmorphone 2 MG/ML SYR 0.5 MG IVP (10:52)
[2024-05-01 10:54] LABS: Lactate 1.8 mmol/L (0.6-1.4)
[2024-05-01] MEDS: Ondansetron 4 MG/2 ML VIAL IVP (10:57)
[2024-05-01 11:15] LABS: ALT 127 U/L (16-63); AST 186 U/L (15-37); Albumin 2.8 g/dL (3.4-5.0); Alkaline Phosphatase 296 U/L (46-116); Bilirubin, Direct 0.7 mg/dL (0.0-0.2); Bilirubin, Total 1.6 mg/dL (0.2-1.0); Lipase 15 U/L (16-77); Total Protein 6.8 g/dL (6.4-8.2)
[2024-05-01 11:26] LABS: Procalcitonin 0.5 ng/mL
[2024-05-01] MEDS: Omnipaque 350 MG/ML 100 ML BTL IJ (11:38)
[2024-05-01] MEDS: Normal Saline 1,000 ML 1000 ML IV (13:23)
[2024-05-01] MEDS: cefTRIAXone 2 GM/50 ML BAG IVPB (13:23)
--- NOTE | 2024-05-01 16:20 | HPE_ITS ---
Date of service: 05/01/24 Time of Service: 16:20 Assessment and Plan Assessment and plan (1) Hydronephrosis of right kidney: Status: Acute Assessment and plan: Patient arrived to ED for evaluation of right flank pain; CT shows hydronephrosis Dr Cat consulted in ED IVF Pain meds Abraham I&O (2) Urinary tract infection: Status: Acute Assessment and plan: Urine positive for infection, ceftriaxone initiated, change to zosyn, add vanco Tylenol for fever Trend CBC, lactic acid 3000 ml Lactated Ringers ordered, then LR @ 125 ml/h (3) DVT prophylaxis: Status: Acute Assessment and plan: Enoxaparin (4) Discharge planning issues: Status: Acute Assessment and plan: Home when stable Discussed with Dr Corley History of Present Illness History of Present Illness Chief Complaint: Right flank pain; fever Narrative: This is a 73-year-old male patient with past medical history significant for, not limited to stage IV colon cancer - last chemo reported as two weeks ago, and kidney stones, who presented to the [facility] emergency department for evaluation of fever, shaking chills, right flank pain, and hematuria that began on Saturday. Patient symptoms suggestive of obstructive uropathy, sepsis, UTI, or renal colic. Initial diagnostic studies revealed leukocytosis, mildly elevated lactate, elevated liver function tests due to known liver metastases, and evidence of UTI on urinalysis. Imaging via CT abdomen pelvis showed a dilated right ureter without a visible stone, indicating a possible passed kidney stone or non-radiopaque stone. In the ED, patient received IV fluids, analgesics, antiemetics, and antibiotics. The patient was placed on observation status on the medical floor for further management of hydronephrosis and urinary tract infection. He expressed understanding of the treatment plan and agreed. Patient is a full code. Review of Systems All systems reviewed & are unremarkable except as noted in HPI and below PFSH All Active Problems (Updated 05/01/24 @ 16:27 by Dagmar Jaime NP) DVT prophylaxis (Acute) Discharge planning issues (Acute) Hydronephrosis of right kidney (Acute) Urinary tract infection (Acute) Social History Smoking risk assessment performed?: No Alcohol Intake: former Housing: house Meds Allergies and Home Medications Allergies Allergy/AdvReac Type Severity Reaction Status Date / Time No Known Allergies Allergy Verified 05/01/24 15:35 Home Medications Medication Instructions Recorded Confirmed Type Unknown [No Known Home Meds] 05/01/24 05/01/24 History Exam Narrative Exam Narrative: GENERAL APPEARANCE: Well-nourished, non-toxic, awake and alert, no acute distress. SKIN: Warm, pink, dry, intact, without rashes/lesions/ulcerations. HEAD: Normocephalic, atraumatic, normal hair distribution for gender/age. EYES: Pupils PERRLA, EOMs intact without nystagmus, normal conjunctiva, no exudates on lids/lashes. ENT: Nares patent, no circumoral cyanosis, no facial swelling NECK: Supple, trachea midline, painless cervical ROM. LUNGS/CHEST: Lungs CTA bilaterally- no rhonchi/rales/wheezes diffusely, non- labored respirations, normal A/P diameter, symmetrical expansion, no chest wall deformity HEART (CV/PV): Regular rate and rhythm without murmur, no peripheral edema, no JVD. ABDOMEN: Soft, non-distended, no guarding, no anterior abdominal tenderness, R CVA tenderness to percussion, negative Pickens's sign, no McBurney's point tenderness. MSK: Normal ROM, no swelling/deformity to bilateral UEs or LEs, moving all extremities without weakness, no cyanosis, spine midline without tenderness, normal curvature. NEURO: Mental Status AAOx4 - alert to person, place, time, events, No focal weakness - strength 5/5 in bilateral UEs and LEs, proximal and distal, symmetric, sensation intact to light touch globally. PSYCH: euthymic, cooperative, pleasant, appropriate speech Results Labs Labs: Laboratory Results - last 24 hr 05/01/24 05/01/24 09:40 10:47 VBG Lactate 1.8 H Total Bilirubin 1.6 H Conjugated Bilirubin 0.7 H AST 186 H ALT 127 H Alkaline Phosphatase 296 H Total Protein 6.8 Albumin 2.8 L Lipase 15 L Procalcitonin 0.5 Urine Color Yellow Urine Clarity Cloudy Urine pH 5.5 Ur Specific [place] 1.020 Urine Protein 30 H Urine Ketones Negative Urine Blood Large H Urine Nitrite Negative Urine Bilirubin Small H Urine Urobilinogen 1.0 H Ur Leukocyte Esterase Trace H Urine RBC >50 H Urine WBC 10-20 H Ur Epithelial Cells Rare Urine Crystals Negative Urine Bacteria Few Urine Casts Negative Urine Mucus Trace Ur Culture Indicated? Yes Urine Glucose Negative Last Vital Signs Temp 37.9 C H 05/01/24 15:07 Pulse 137 H 05/01/24 15:07 Resp 37 H 05/01/24 15:07 BP 130/70 05/01/24 15:07 Pulse Ox 93 05/01/24 15:07 Time Spent Time spent with Patient: 40-54 minutes Time was spent: preparing to see the patient(eg.review tests), obtaining and/or reviewing separately otained hiistory, ordering medications,tests, procedures, referring, communicating with other health acute care clinical nurse specialist, indepentently interpreting results, counseling the patient and care coordination
[2024-05-01 16:35] LABS: Lactate 4.6 mmol/L (0.6-1.4)
[2024-05-01] MEDS: Lactated Ringers 1,000 ML 1000 ML IV ×2 (16:41→18:00)
--- NOTE | 2024-05-01 17:16 | W.EVENT ---
Date of service: 05/01/24 Time of Service: 17:16 Event Note: 73-year-old male with history of metastatic colon cancer with mets to liver and bones, history of nephrolithiasis who presented with 3-day history of nausea fever and chills. He was found to be uroseptic. He was started on ceftriaxone and given a liter of fluids in the emergency department. He was hemodynamically stable in the emergency department deemed to be acceptable for medical floor admission however after evaluation by Dagmar norton, nurse practitioner, he was found to be hypotensive and tachycardic and tachypneic. Lactate level was found to be rising. She had ordered another 2 L of IV fluids. So far 500 mL has been infused. Patient is alert and oriented and answering appropriately but he appears to be toxic still tachypneic and still tachycardic heart rate in the 110s systolic pressure of 98. Patient is refusing have a Abraham catheter placed. Patient admitted to the intensive care unit. Workup in the ED included CT scan abdomen pelvis that showed right-sided hydronephrosis but no obstructive stone. Patient gives a history that earlier this morning he was having a lot of right flank pain. It is presumed that he had passed a kidney stone and is now septic from this. We will expand IV antibiotic coverage with Zosyn and vancomycin and transferred to the intensive care unit where he may need vasopressors if he is not responding to fluid boluses. Time Spent with Patient Time spent in critical care(minutes): 30 Time Spent Included: Coordination of care, Chart review, Documenting critically ill care, Time at immediate bedside and Discussing critically ill care with other medical staff
[2024-05-01] MEDS: Norepinephrine in D5W 8 MG/250 ML BAG 9.375 MG IV (19:00)
[2024-05-01 19:15] LABS: Lactate 5.3 mmol/L (0.6-1.4)
[2024-05-01] MEDS: Normal Saline 500 ML 30 ML IV ×2 (19:25→21:41)
[2024-05-01] MEDS: Lactated Ringers 1,000 ML 125 ML IV (19:25)
[2024-05-01] MEDS: PIPERACILLIN/TAZO 3.375 GM in Normal Saline 50 ML IVPB (19:34)
[2024-05-01] MEDS: Enoxaparin 40 MG/0.4 ML SYR SC (21:22)
[2024-05-01] MEDS: VANCOMYCIN 1,000 MG in Normal Saline 250 ML 166.667 MG IVPB (21:25)
[2024-05-01] MEDS: Normal Saline Flush 10 ML SYR IVP (21:25)
[2024-05-01] MEDS: Ketorolac 15 MG/ML VIAL IV (21:30)
[2024-05-01] MEDS: Lidocaine 2% Jelly 6 ML SYR (22:15)
[2024-05-02] VITALS (104 sets, daily range): BP systolic 72–126; BP diastolic 42–80; PULSE 71–100; RESP 15–41; TEMP 37.2–38; O2SAT 89–96
--- NOTE | 2024-05-02 | DI.CT_ITS ---
Exam(s) CT RENAL COLIC WO EXAM: CT RENAL COLIC WO CLINICAL HISTORY: nephrolithiasis, hydronephrosis, GNR sepsis, UTI. TECHNIQUE: Imaging Protocol: Axial computed tomography images with coronal and sagittal reformatted images were created and reviewed. COMPARISON: CT CT ABDOMEN PELVIS WO/W from 05/01/2024 FINDINGS: ABDOMEN: Lung Bases: There is a small bilateral pleural effusions, right greater than left with subjacent infi ltrates which may represent atelectasis or pneumonia. Coronary artery calcifications are seen. Mild cardiomegaly. There is a 4 mm nodule in the right lower lobe. Liver: Normal density. There is again seen a large hepatic mass. It is less well visualized due to t he lack of IV contrast material. There is a cyst in the left lobe of the liver again seen. The live r measures 22 cm long. Gallbladder and biliary tract: No radiodense calculus or biliary ductal dilation. Pancreas: Pancreatic atrophy. No evidence of a pancreatic mass. Spleen: The spleen is enlarged. Kidneys: Normal size, contour and axis.Multiple calcifications are seen in the right renal pelvis whi ch may reflect nonobstructing stones versus vascular calcifications. No ureterolithiasis or hydronep hrosis. No masses seen. Adrenal glands: No mass is seen. Lymph nodes: There again seen multiple upper abdominal/eddie hepatic enlarged lymph nodes. Enlarged retroperitoneal lymph nodes are also present. There are enlarged lymph nodes seen in the pelvis. Th ere is a 2 cm lymph node adjacent to the left internal iliac vessels. Abdominal Aorta: Abdominal portion non-dilated. Atherosclerotic calcification is present. IVC: There is a left-sided IVC. PELVIS: Bladder:Urinary bladder is decompressed with a Abraham catheter in place. Bowel: There is again seen bowel wall thickening and pericolonic stranding in the proximal descending colon. This is similar appearance to come the prior examination. There is diverticulosis of the co robina. Evidence of appendicitis. No evidence of bowel obstruction. Peritoneal cavity: There is a small amount of fluid in the pelvis. No free air. Reproductive organs: Unremarkable as visualized. Bones: There is the destructive lesions seen at the sacrococcygeal junction on the left. Soft Tissues: Within normal limits. IMPRESSION: 1. Findings again seen suggesting metastatic disease with pulmonary nodule, hepatic mass, abdominal a denopathy, ascites and sacrococcygeal destructive lesion. 2. Wall thickening and pericolonic inflammatory stranding in the proximal descending colon. Inflamma tory/infectious process versus neoplasm. 3. Resolution of the right hydronephrosis. 4. Interval development of bilateral pleural effusions and subjacent infiltrates. RADIATION DOSE DELIVERED: 1,530.07mGy.cm Total DLP DATA REPOSITORY: All CT scans at this facility are submitted to the National Radiology Data Registry (NRDR) Dose Index Registry (DIR) with the [employer] (ACR). RADIATION OPTIMIZATION: All CT scans at this facility use at least one of these dose optimization te chniques: automated exposure control; mA and/or kV adjustment per patient size (includes targeted exa ms where dose is matched to clinical indication); or iterative reconstruction.
[2024-05-02] MEDS: Norepinephrine in D5W 8 MG/250 ML BAG 28.125 MG IV (01:00)
[2024-05-02] MEDS: Lactated Ringers 1,000 ML 125 ML IV ×3 (03:51→20:10)
[2024-05-02] MEDS: PIPERACILLIN/TAZO 3.375 GM in Normal Saline 50 ML IVPB ×3 (03:55→20:11)
[2024-05-02] MEDS: Normal Saline Flush 10 ML SYR IVP ×3 (05:13→20:11)
[2024-05-02 05:37] LABS: Abs Immature Grans 0.08 10^3/uL (0.0-0.06); HCT 33.1 % (40.0-50.0); HGB 10.8 g/dL (13.5-17.5); MCH 27.6 pg (27.0-33.0); MCHC 32.6 % (32.0-36.0); MCV 85 fL (80-95); MPV 9.1 fL (8.0-11.0); Platelet Count 159 10^3/uL (130-400); RBC 3.91 10^6/uL (4.36-5.78); RDW 16.3 % (11.8-14.1); RDW-SD 50.8 fL; WBC 7.66 10^3/uL (4.4-10.8)
[2024-05-02 05:57] LABS: Absolute Lymphocyte Count 0.46 10^3/uL (1.2-3.4); Absolute Monocyte Count 0.77 10^3/uL (0.1-0.8); Absolute Neutrophil Count 6.36 10^3/uL (1.2-6.7)
[2024-05-02 05:58] LABS: Diff Comment Manual Differential; Metamyelocytes % 1; RBC Morphology Normal
[2024-05-02 06:12] LABS: ALT 92 U/L (16-63); AST 128 U/L (15-37); Albumin 2.1 g/dL (3.4-5.0); Alkaline Phosphatase 218 U/L (46-116); BUN 17 mg/dL (7-18); Bilirubin, Total 2.5 mg/dL (0.2-1.0); CREATININE 1.2 mg/dL (0.70-1.30); Calcium 7.9 mg/dL (8.5-10.1); Chloride 105 mmol/L (98-107); Estimated GFR 64.65 (mL/min/1.73m2); Glucose 81 mg/dL (74-106); Magnesium 1.4 mg/dL (1.8-2.4); Potassium 3.7 mmol/L (3.5-5.1); Sodium 140 mmol/L (136-145); Total Protein 5.8 g/dL (6.4-8.2)
[2024-05-02] MEDS: VANCOMYCIN/WATER (PEG) 750 MG/150 ML BAG 100 MG IVPB (09:08)
[2024-05-02 10:38] LABS: Lactate 3.4 mmol/L (0.6-1.4)
--- NOTE | 2024-05-02 11:16 | W.PM.PROGNOT ---
Date of Service Date of service: 05/02/24 Time of Service: 11:16 Assessment and Plan Assessment and plan (1) Gram negative septic shock: Status: Acute Assessment and plan: Continue Zosyn, discontinue vancomycin, continue IV fluids, wean norepinephrine as tolerated, check repeat renal CT scan of the abdomen pelvis to rule out obstructive process. If obstruction is found will refer him to a tertiary care center for transfer for urgent urologic intervention. Otherwise if there is no current obstruction we will continue current medical treatment and have urology see him on Saturday morning. Patient still requires ICU care as long as he is on vasopressors. Begin PPI for GI protection, monitor labs (CBC, CMP) Critical care time spent interviewing and examining the patient, reviewing studies, discussing case with patient's nurse and consulting physicians was 40 minutes (2) Hydronephrosis of right kidney: Status: Acute (3) Urinary tract infection: Status: Acute Qualifiers: Urinary tract infection type: acute pyelonephritis Qualified Code(s): N10 - Acute pyelonephritis (4) DVT prophylaxis: Status: Acute Assessment and plan: enoxaparin 40 mg SC daily (5) Hypomagnesemia: Status: Acute Assessment and plan: Mg 1.4 will correct w/ po and iv and monitor Subjective Subjective Interval history since last seen: Pat still has residual right flank pain no vomiting no abdominal pain. Seems to be responding to antibiotics and norepinephrine. Nursing is weaning down his norepinephrine. He was up to 20 mcg/min last night but is now down to 5 mcg/min. He is making urine at about [address] of the abdomen pelvis yesterday showed right-sided hydronephrosis and hydroureter but no visible obstructing stone. Because of his residual flank pain and gram-negative sepsis, to repeat a renal CT today to make sure there is no obstruction. I did a bedside POCUS exam and he has moderate right hydronephrosis and hydroureter. I did not see any stone obstructing his ureter. I cannot visualize his bladder as his bladder was emptied Abraham catheter. Patient's was in the room I discussed his care with her and explained that he has gram-negative noe sepsis precipitated by nephrolithiasis. Exam Narrative Exam Narrative: Pat looks ill but he does not look toxic like he did yesterday. He is alert and oriented x 3 with mild discomfort and right flank pain Lungs are clear Heart is regular rate and rhythm no murmur rub or gallop Abdomen nondistended normal bowel sounds soft nontender Right flank mild tenderness to palpation Suprapubic area was nontender to palpation Abraham catheter draining clear yellow urine Objective Last Vital Signs Temp 38.0 C H 05/02/24 08:11 Pulse 89 05/02/24 09:46 Resp 30 H 05/02/24 09:46 BP 102/58 L 05/02/24 09:46 Pulse Ox 94 05/02/24 09:46 Laboratory Results - last 24 hr 05/01/24 05/01/24 05/01/24 10:47 16:25 19:07 WBC RBC Hgb Hct MCV MCH MCHC RDW Plt Count MPV Immature Gran % Neutrophils % Lymphocytes % Monocytes % Eosinophils % Basophils % Metamyelocytes % Nucleated RBC % Absolute Neutrophils Absolute Lymphocytes Absolute Monocytes Absolute Eosinophils Absolute Basophils RBC Morphology VBG Lactate 4.6 H* 5.3 H* Sodium Potassium Chloride Carbon Dioxide Anion Gap BUN Creatinine Est GFR (CKD-EPI 2020) Glucose Calcium Magnesium Total Bilirubin 1.6 H Conjugated Bilirubin 0.7 H AST 186 H ALT 127 H Alkaline Phosphatase 296 H Total Protein 6.8 Albumin 2.8 L Lipase 15 L Procalcitonin 0.5 05/02/24 05/02/24 05:22 10:27 WBC 7.66 RBC 3.91 L Hgb 10.8 L Hct 33.1 L MCV 85 MCH 27.6 MCHC 32.6 RDW 16.3 H Plt Count 159 MPV 9.1 Immature Gran % 0.0 Neutrophils % 83.0 Lymphocytes % 6.0 Monocytes % 10.0 Eosinophils % 0.0 Basophils % 0.0 Metamyelocytes % 1 Nucleated RBC % 0.0 Absolute Neutrophils 6.36 Absolute Lymphocytes 0.46 L Absolute Monocytes 0.77 Absolute Eosinophils 0.00 Absolute Basophils 0.00 RBC Morphology Normal VBG Lactate 3.4 H* Sodium 140 Potassium 3.7 Chloride 105 Carbon Dioxide 24.0 Anion Gap 11.0 BUN 17 Creatinine 1.2 Est GFR (CKD-EPI 2020) 64.65 Glucose 81 Calcium 7.9 L Magnesium 1.4 L Total Bilirubin 2.5 H Conjugated Bilirubin AST 128 H ALT 92 H Alkaline Phosphatase 218 H Total Protein 5.8 L Albumin 2.1 L Lipase Procalcitonin Time Spent with Patient Time Spent with Patient: 35-49 minutes Time was spent: preparing to see the patient(eg.review tests), ordering medications,tests, procedures, referring, communicating with other health health care facilities inspector, indepentently interpreting results, counseling the patient and care coordination
[2024-05-02] MEDS: MAGNESIUM SULFATE 2 GM/50 ML BAG IVINF ×2 (12:24→20:10)
[2024-05-02] MEDS: Ketorolac 15 MG/ML VIAL IV ×2 (12:25→20:18)
[2024-05-02] MEDS: Pantoprazole 40 MG VIAL IVP (12:25)
--- NOTE | 2024-05-02 15:50 | DI.VRAD_ITS ---
PROCEDURE INFORMATION: Exam: CT Abdomen And Pelvis Without Contrast Exam date and time: 05/02/2024 2:01 PM Age: 73 years old Clinical indication: Other: Nephrolithiasis, hydronephrosis, gnr sepsis, UTI TECHNIQUE: Imaging protocol: Computed tomography of the abdomen and pelvis without contrast. Radiation optimization: All CT scans at this facility use at least one of these dose optimization techniques: automated exposure control; mA and/or kV adjustment per patient size (includes targeted exams where dose is matched to clinical indication); or iterative reconstruction. COMPARISON: CT ABDOMEN PELVIS WO/W 05/01/2024 11:25 AM FINDINGS: Lungs: Small bilateral pleural effusion and overlying atelectasis/consolidation. Liver: A few tiny hepatic cysts. Large central hepatic indeterminate density around axial image 40. Gallbladder and bile ducts: No acute findings. Pancreas: No ductal dilation. Spleen: No splenomegaly. Adrenal glands: 3 cm left adrenal adenoma. Kidneys and ureters: Interval decompression of the right collecting system, no obstructing stones. Numerous small right renal calculi. No left sided calculi. Stomach and bowel: No obstruction. Unchanged focal stranding around the left colon axial image 80 Appendix: No evidence of appendicitis. Intraperitoneal space: No free air. Nonspecific mesenteric edema and trace abdominopelvic free fluid. Vasculature: No abdominal aortic aneurysm. Lymph nodes: Redemonstrated enlarged perigastric lymph nodes measuring up to 2.5 cm and retroperitoneal lymph nodes measuring up to 1.4 cm, unchanged. Enlarged 1.8 cm left pelvic sidewall node on axial image 146. Urinary bladder: Decompressed around a Abraham catheter. Reproductive: No acute findings. Bones/joints: No acute findings. Soft tissues: No acute findings. IMPRESSION: Interval decompression of the right collecting system, no obstructing stones. New small bilateral pleural effusions and overlying atelectasis/consolidation. Remainder of the exam with chronic/incidental findings as above, unchanged. Dictated and Authenticated by: Eulalio Rojas MD. Ordering:[facility] Barney Mauricio MD
--- NOTE | 2024-05-02 16:06 | RESPIRATORY ---
Patient to use his home NIV unit as desired and at HS. 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 DME: [facility] / [employer] Interface: Nasal mask, size Medium.
--- NOTE | 2024-05-02 17:45 | RT.EKG_ITS ---
APPROVED REPORT Exam: Resting ECG Reason for Exam: qtc prolongation on telemetry Patient Location: I HR:90 bpm ECG Measurements Heart Rate 90 AXIS MN 137 P 27 QRSd 77 QRS 25 QT 413 T -20 QTc 506 Conclusion Sinus rhythm...normal P axis, V-rate 50- 99 Borderline T abnormalities, diffuse leads...T flat/neg Prolonged QT interval...QTc >500mS
[2024-05-02 18:27] LABS: Anion Gap 10.4 mmol/L (3-11); BUN 17 mg/dL (7-18); CO2 25.6 mmol/L (21.0-32.0); Calcium 7.6 mg/dL (8.5-10.1); Chloride 105 mmol/L (98-107); Estimated GFR 80.47 (mL/min/1.73m2); Glucose 88 mg/dL (74-106); Magnesium 1.9 mg/dL (1.8-2.4); Potassium 3.2 mmol/L (3.5-5.1); Sodium 141 mmol/L (136-145)
--- NOTE | 2024-05-02 18:38 | INITIAL_ITS ---
Date of service: 05/02/24 Time of Service: 18:38 Care Management Initial Assmt Initial Assessment Reason for Hospitalization: UTI Functional Status/Living Situation Patient Presentation: Tristin (who goes by Pat) was being taken down to CT when CM attempted to meet with him. Per report, he remains on a norepinephrine drip, which will be weaned as tolerated. He is being closely monitored at ICU level of care. CM will continue to follow. Town of Residence: [place] Resides with: Spouse (Radha) Natural Supports: daughter, Maureen Employment Status: Retired Instrumental Activities of Daily Living (ADLs): Independent Medications Medication Management: No Issues/Barriers identified Advance Directives Advance Directives: Do you have an Advance Directive: N 05/01/24 09:31 AD On File at [facility]: N 10/11/23 18:46 Date Asked 05/01/24 05/01/24 13:02 AD Date Reviewed COLST On File at [facility] COLST Date Scanned Code Status Resuscitation Status Full Code Insurance Coverage/Financial Issues Insurance: [facility]. /BS. ACO Member: No Care Team Visit Care Team Role Provider Type [facility] Primary Care Provider NON-[facility] STAFF PHYSICIAN John Cat MD Other Providers [facility] STAFF PHYSICIAN SADIE Chu Emergency Provider [employer] Hang Corley MD Admit Provider [facility] STAFF PHYSICIAN Attending Provider Discharge Potential Discharge Needs: Consult Consult Services Needed: Other (Urology) Anticipated Barriers to Discharge: Medical Status Patient/Family Education Needs: Review discharge instructions, discuss Ask Me Three Transportation: Private vehicle Plan: Anticipate Lizzeth will return home once medically cleared. His will drive him home via private vehicle when ready. He will follow up with his PCP and discharge plan of care. CM will continue to follow. PFSH All Active Problems (Updated 05/02/24 @ 11:53 by Hang Corley MD) Hypomagnesemia (Acute) Gram negative septic shock (Acute) DVT prophylaxis (Acute) Discharge planning issues (Acute) Hydronephrosis of right kidney (Acute) Urinary tract infection (Acute) Social History Smoking risk assessment performed?: No Alcohol Intake: former Housing: house [facility](Care Management) Screening Will the Patient Participate in the Screening?: Declined to provide Do you worry about having a steady place to live?: choose not to answer In the past 12 months, have you had to go without electric, gas, oil or water in your home?: choose not to answer Have you or anyone in your house had to go without enough food to eat?: choose not to answer Has lack of transportation kept you from medical appointments or from doing things needed for daily living?: choose not to answer Has anyone in your support network made you feel unsafe for any reason?: choose not to answer
[2024-05-02] MEDS: Norepinephrine in D5W 8 MG/250 ML BAG 9.375 MG IV (19:05)
[2024-05-02] MEDS: Enoxaparin 40 MG/0.4 ML SYR SC (20:11)
[2024-05-02] MEDS: POTASSIUM CHLORIDE 20 MEQ/100 ML BAG 50 MEQ IVINF (21:48)
[2024-05-02] MEDS: Normal Saline 500 ML 25 ML IV (21:56)
[2024-05-03] VITALS (85 sets, daily range): BP systolic 74–132; BP diastolic 49–77; PULSE 63–130; RESP 9–32; TEMP 36.1–37.6; O2SAT 88–97
[2024-05-03] MEDS: POTASSIUM CHLORIDE 20 MEQ/100 ML BAG 50 MEQ IVINF ×3 (00:02→16:41)
[2024-05-03] MEDS: Ketorolac 15 MG/ML VIAL IV ×2 (02:07→08:14)
--- NOTE | 2024-05-03 02:15 | RT.EKG_ITS ---
APPROVED REPORT Exam: Resting ECG Reason for Exam: Left arm pain Patient Location: I HR:71 bpm ECG Measurements Heart Rate 71 AXIS NM 135 P 19 QRSd 99 QRS 28 QT 468 T 16 QTc 509 Conclusion Sinus rhythm...normal P axis, V-rate 50- 99 Borderline T abnormalities, anterior leads...T flat or neg, V2-V4 Prolonged QT interval...QTc >500mS
[2024-05-03] MEDS: HYDROmorphone 2 MG/ML SYR 0.5 MG IVP (02:49)
[2024-05-03] MEDS: PIPERACILLIN/TAZO 3.375 GM in Normal Saline 50 ML IVPB ×2 (03:00→13:30)
[2024-05-03] MEDS: Lactated Ringers 1,000 ML 125 ML IV (03:14)
[2024-05-03] MEDS: Normal Saline Flush 10 ML SYR IVP ×5 (06:27→23:49)
[2024-05-03 06:51] LABS: HCT 30.3 % (40.0-50.0); HGB 9.8 g/dL (13.5-17.5); MCH 27.6 pg (27.0-33.0); MCHC 32.3 % (32.0-36.0); MCV 85 fL (80-95); MPV 9.3 fL (8.0-11.0); Platelet Count 126 10^3/uL (130-400); RBC 3.55 10^6/uL (4.36-5.78); RDW 16.2 % (11.8-14.1); RDW-SD 50.7 fL; WBC 5.86 10^3/uL (4.4-10.8)
[2024-05-03 07:07] LABS: Magnesium 2.6 mg/dL (1.8-2.4)
[2024-05-03 07:11] LABS: ALT 60 U/L (16-63); AST 83 U/L (15-37); Albumin 1.8 g/dL (3.4-5.0); Alkaline Phosphatase 186 U/L (46-116); BUN 18 mg/dL (7-18); Bilirubin, Total 2.6 mg/dL (0.2-1.0); CREATININE 0.9 mg/dL (0.70-1.30); Calcium 7.7 mg/dL (8.5-10.1); Chloride 106 mmol/L (98-107); Estimated GFR 91.31 (mL/min/1.73m2); Glucose 89 mg/dL (74-106); Potassium 3.4 mmol/L (3.5-5.1); Sodium 138 mmol/L (136-145); Total Protein 5.4 g/dL (6.4-8.2)
[2024-05-03 07:28] LABS: Absolute Eosinophil Count 0.06 10^3/uL (0.0-0.7); Absolute Lymphocyte Count 0.41 10^3/uL (1.2-3.4); Absolute Monocyte Count 0.23 10^3/uL (0.1-0.8); Absolute Neutrophil Count 5.16 10^3/uL (1.2-6.7); Bands % 10 %; Diff Comment Manual Differential; RBC Morphology Normal
--- NOTE | 2024-05-03 08:12 | W.POCUS ---
Pocus Exam Limited Retroperitoneal(Renal)Exam DATE OF EXAM: 05/02/24 TIME OF EXAM: 11:28 PROVIDER THAT PERFORMED THE STUDY: Hang Corley REASON FOR EXAM: Flank pain/right side and Other (sepsis, hydronephrosis) indication: sepsis VISUALIZED STRUCTURES: left kidney and right kidney PERTINENT FINDINGS/IMPRESSION: no hydronephrosis present Exam complete
--- NOTE | 2024-05-03 09:53 | W.PM.PROGNOT ---
Date of Service Date of service: 05/03/24 Time of Service: 09:53 Assessment and Plan Assessment and plan (1) Gram negative septic shock: Status: Acute Assessment and plan: remains on N.E. was increased to 10 mcg/minute last night. Reportedly drops his BP when he lies on his side. This morning, nursing has gotten his N.E. down to 2.5 mcg/minute. SBP in the low 100's i.e. and MAP around 65. I think that he should be able to come off the N.E. drip today. Cause is Proteus bacteremia and UTI from nephrolithiasis although his renal US yesterday and repeat renal CT did not show any obstruction. I will consult w/ Dr. Cat tomorrow. D#3 Zosyn, vancomycin dc'ed yesterday IVF rate decreased from 125 mL/hr to 65 mL/hr, continue to wean off N.E. and then wean off IVF as long as adeqate urine output and he is taking po fluids well. Critical care time spent interviewing and examining the patient, reviewing studies, discussing case with patient's nurse and consulting physicians was 30 minutes (2) Hydronephrosis of right kidney: Status: Acute Assessment and plan: appears resolved but will consult w/ Dr. Cat as I think he will need cystoscopy and stent. (3) Urinary tract infection: Status: Acute Assessment and plan: Proteus in urine and blood. Qualifiers: Urinary tract infection type: acute pyelonephritis Qualified Code(s): N10 - Acute pyelonephritis (4) Hypomagnesemia: Status: Acute Assessment and plan: 2.6 after replacement, continue to monitor (5) Hypokalemia due to loss of potassium: Status: Acute Assessment and plan: will replace and monitor (6) Thrombocytopenia: Status: Chronic Assessment and plan: probably mild DIC from sepsis (7) Transaminitis: Status: Acute Assessment and plan: likely d/t his hepatic mets but may be also from shock liver from his hypotension (8) DVT prophylaxis: Status: Acute Assessment and plan: enoxaparin 40 mg SC daily Subjective Subjective Interval history since last seen: Lizzeth says that overall he is feeling better today. He ate some breakfast. His back pain is less intense. Repeat renal CT did not show any obstruction of his ureter and his hydronephrosis has resolved. I told Lizzeth that he has Proteus bacteremia from his UTI. I will ask Dr. Cat to see him tomorrow. We are attempting to collect stones for analysis so I asked nursing to strain his urine. he still has collins in place w/ adequate urine output. Lizzeth says that he has been bothered by left arm aching and numbness from upper arm to wrist. Serial EKG were done last night. At first an EKG was done d/t prolonged QTC interval but repeat one was done at 2:19 am when he first complained of the arm discomfort. He has no chest pain or pressure and no dyspnea. I told Lizzeth that we should get an MRI of his C-spine tomorrow to rule out cervical pathology such as disc injury or infection or cancer. Exam Narrative Exam Narrative: alert and oriented, he seems improved from yesterday, more interactive, no distress Left arm: he seems to have some diminished sensation to light touch over forearm compared to right, although he has normal ROM. no noticeable weakness in left upper or forearm or hand or wrist, normal intrinsics muscle strength in fingers Lungs: clear Heart: RRR, no murmur Flank: no tenderness w/ palpation over right flant Collins: draining clear yellow urine Objective Last Vital Signs Temp 36.7 C 05/03/24 07:43 Pulse 77 05/03/24 09:31 Resp 17 05/03/24 09:31 BP 102/53 L 05/03/24 09:31 Pulse Ox 89 L 05/03/24 09:31 Laboratory Results - last 24 hr 05/02/24 05/02/24 05/02/24 10:27 12:00 18:00 WBC RBC Hgb Hct MCV MCH MCHC RDW Plt Count MPV Immature Gran % Neutrophils % Band Neutrophils % Lymphocytes % Monocytes % Eosinophils % Basophils % Nucleated RBC % Absolute Neutrophils Absolute Lymphocytes Absolute Monocytes Absolute Eosinophils Absolute Basophils RBC Morphology VBG Lactate 3.4 H* Sodium 141 Potassium 3.2 L Chloride 105 Carbon Dioxide 25.6 Anion Gap 10.4 BUN 17 Creatinine 1.0 Est GFR (CKD-EPI 2020) 80.47 Glucose 88 Calcium 7.6 L Magnesium 1.9 Total Bilirubin AST ALT Alkaline Phosphatase Total Protein Albumin Random Vancomycin Cancelled 05/03/24 06:30 WBC 5.86 RBC 3.55 L Hgb 9.8 L Hct 30.3 L MCV 85 MCH 27.6 MCHC 32.3 RDW 16.2 H Plt Count 126 L MPV 9.3 Immature Gran % 0.0 Neutrophils % 78.0 Band Neutrophils % 10 Lymphocytes % 7.0 Monocytes % 4.0 Eosinophils % 1.0 Basophils % 0.0 Nucleated RBC % 0.0 Absolute Neutrophils 5.16 Absolute Lymphocytes 0.41 L Absolute Monocytes 0.23 Absolute Eosinophils 0.06 Absolute Basophils 0.00 RBC Morphology Normal VBG Lactate Sodium 138 Potassium 3.4 L Chloride 106 Carbon Dioxide 25.0 Anion Gap 7.0 BUN 18 Creatinine 0.9 Est GFR (CKD-EPI 2020) 91.31 Glucose 89 Calcium 7.7 L Magnesium 2.6 H Total Bilirubin 2.6 H AST 83 H ALT 60 Alkaline Phosphatase 186 H Total Protein 5.4 L Albumin 1.8 L Random Vancomycin Time Spent with Patient Time Spent with Patient: 25-34 minutes Time was spent: preparing to see the patient(eg.review tests), ordering medications,tests, procedures, referring, communicating with other health client care specialist, indepentently interpreting results, counseling the patient and care coordination
[2024-05-03 10:40] LABS: Lab Add On Test DONE
--- NOTE | 2024-05-03 10:45 | RT.EKG_ITS ---
APPROVED REPORT Exam: Resting ECG Reason for Exam: evaluate QTC Patient Location: I HR:78 bpm ECG Measurements Heart Rate 78 AXIS ID 133 P 33 QRSd 99 QRS 26 QT 437 T -7 QTc 498 Conclusion Sinus rhythm...normal P axis, V-rate 50- 99 Low voltage, precordial leads...precordial leads <1.0mV Otherwise normal ECG
[2024-05-03 11:04] LABS: Troponin I 306 ng/L (< or =60)
[2024-05-03 11:26] LABS: Lactate 2.3 mmol/L (0.6-1.4)
[2024-05-03 11:36] LABS: INR 1.1 (0.9-1.1); PTT Activated 36.4 sec (23.6-32.8); Prothrombin Time 10.9 sec (9.1-11.1)
[2024-05-03 11:52] LABS: Troponin I 258 ng/L (< or =60)
--- NOTE | 2024-05-03 12:15 | RT.EKG_ITS ---
APPROVED REPORT Exam: Resting ECG Reason for Exam: AFIB rhythm change Patient Location: I HR:124 bpm ECG Measurements Heart Rate 124 AXIS IN [id number] P [id number] QRSd 73 QRS 28 QT 334 T 31 QTc 480 Conclusion Atrial fibrillation...? atrial activity Low voltage, precordial leads...precordial leads <1.0mV
[2024-05-03] MEDS: dilTIAZem 25 MG/5 ML VIAL 5 MG IVP (12:42)
[2024-05-03] MEDS: dilTIAZem 30 MG TAB PO ×2 (12:43→16:44)
[2024-05-03] MEDS: Aspirin 81 MG CHEW 324 MG CH (12:43)
[2024-05-03 13:01] LABS: Fibrinogen (Stat) (Littleton) 713 mg/dL (208-434)
[2024-05-03] MEDS: Pantoprazole 40 MG VIAL IVP (13:29)
--- NOTE | 2024-05-03 14:02 | NUR.NOTE ---
MD made aware of pauses noted in rhythm change. Most recent pause clinically significant at 3 secs. MD advised to monitor and make him aware if pauses are greater than or equal to 4 sec. This travel writer also made MD aware of elevated fibrinogen and APTT results in addition to recent potassium levels being 3.4. MD agreed upon new orders for potassium repletion at this time.
[2024-05-03 14:40] LABS: Troponin I 207 ng/L (< or =60)
--- NOTE | 2024-05-03 17:00 | RT.EKG_ITS ---
APPROVED REPORT Exam: Resting ECG Reason for Exam: rhythm change Patient Location: I HR:81 bpm ECG Measurements Heart Rate 81 AXIS SD 134 P 12 QRSd 89 QRS 15 QT 413 T -2 QTc 480 Conclusion Sinus rhythm...normal P axis, V-rate 50- 99 Low voltage, precordial leads...precordial leads <1.0mV Borderline prolonged QT interval...QTc >475mS
[2024-05-03] MEDS: Lactated Ringers 1,000 ML 1000 ML IV (17:47)
--- NOTE | 2024-05-03 18:37 | POCUS_ITS ---
Pocus Exam Limited Cardiac Exam DATE OF EXAM: 05/03/24 TIME OF EXAM: 15:54 PROVIDER THAT PERFORMED THE STUDY: Hang Corley REASON FOR EXAM: Hypotension VISUALIZED STRUCTURES: four chambers, LVOT, aortic valve, Interventricular septum and IVC VIEW OBTAINED: Apical 4-Chamber (limited imaging from A4C view d/t lung curtain and due to patient intolerant of body positioning, images taken supine), Paraste rnal long-axis, Parasternal short-axis and Subxiphoid PERTINENT FINDINGS/IMPRESSION: IVC inspiratory collapsability; No LV dysfunction, No pericardial effusion, No plethoric IVC and No RV dysfunction INCIDENTAL FINDINGS: no significant mitral regurgitation, no /AI, no pericardial effusion, no wall motion abnormalities Exam complete
[2024-05-03] MEDS: Lactated Ringers 500 ML IV (19:21)
[2024-05-03] MEDS: Enoxaparin 40 MG/0.4 ML SYR SC (19:38)
[2024-05-03] MEDS: Lactated Ringers 1,000 ML 150 ML IV (20:02)
[2024-05-03] MEDS: traMADol 50 MG TAB PO (20:16)
[2024-05-03] MEDS: HYDROmorphone 2 MG/ML SYR 1 MG IVP (23:50)
[2024-05-04] VITALS (71 sets, daily range): BP systolic 91–135; BP diastolic 51–104; PULSE 62–78; RESP 11–38; TEMP 36.8–37.3; O2SAT 88–96
[2024-05-04] MEDS: Lactated Ringers 1,000 ML 150 ML IV ×3 (03:31→19:16)
[2024-05-04 05:20] LABS: Lactate 1.4 mmol/L (0.6-1.4)
[2024-05-04 05:27] LABS: Abs Immature Grans 0.02 10^3/uL (0.0-0.06); HCT 29.8 % (40.0-50.0); HGB 9.6 g/dL (13.5-17.5); MCH 27.6 pg (27.0-33.0); MCHC 32.2 % (32.0-36.0); MCV 86 fL (80-95); MPV 9.9 fL (8.0-11.0); Platelet Count 121 10^3/uL (130-400); RBC 3.48 10^6/uL (4.36-5.78); RDW 16.5 % (11.8-14.1); RDW-SD 51.9 fL; WBC 4.89 10^3/uL (4.4-10.8)
[2024-05-04 05:36] LABS: Magnesium 2.2 mg/dL (1.8-2.4)
[2024-05-04 05:43] LABS: ALT 61 U/L (16-63); AST 106 U/L (15-37); Albumin 1.6 g/dL (3.4-5.0); Alkaline Phosphatase 311 U/L (46-116); Anion Gap 5.9 mmol/L (3-11); BUN 18 mg/dL (7-18); Bilirubin, Total 3.6 mg/dL (0.2-1.0); CO2 27.1 mmol/L (21.0-32.0); CREATININE 0.9 mg/dL (0.70-1.30); Calcium 7.6 mg/dL (8.5-10.1); Chloride 107 mmol/L (98-107); Estimated GFR 91.31 (mL/min/1.73m2); Glucose 77 mg/dL (74-106); Potassium 3.8 mmol/L (3.5-5.1); Sodium 140 mmol/L (136-145); Total Protein 4.7 g/dL (6.4-8.2)
[2024-05-04 05:46] LABS: Troponin I 108 ng/L (< or =60)
[2024-05-04 05:49] LABS: Absolute Lymphocyte Count 0.44 10^3/uL (1.2-3.4); Absolute Monocyte Count 0.24 10^3/uL (0.1-0.8); Absolute Neutrophil Count 4.01 10^3/uL (1.2-6.7); Bands % 3 %
[2024-05-04 05:50] LABS: Diff Comment Manual Differential; RBC Morphology Normal
--- NOTE | 2024-05-04 07:08 | W.UROLOGYCON ---
Date of service: 05/04/24 Time of Service: 07:08 Assessment and Plan Assessment and plan (1) Urinary tract infection: Status: Acute Qualifiers: Urinary tract infection type: acute pyelonephritis Qualified Code(s): N10 - Acute pyelonephritis (2) Hydronephrosis of right kidney: Status: Acute (3) Gram negative septic shock: Status: Acute Assessment and plan: His hydronephrosis has resolved, so I do not believe he needs a ureteral stent at this time. Continued treatment with antibiotics seems most appropriate as long as he is responding. If he is not having the expected response, a procedure to drain the right kidney might be helpful. I am not sure what to make of his right flank pain. On his initial CT, he clearly had hydronephrosis all the way down to the ureterovesical junction, so I expect some of his initial pain was related to his kidney. Now that the hydronephrosis is gone, it may be that the right sided pain is more related to his metastatic disease. If his pain is not well-managed, we could try placing a ureteral stent to see if his pain improves. While a cystoscopy and stent placement are not extensive procedures, they are not without risk and would need to be considered carefully. History of Present Illness History of Present Illness Chief Complaint: Urosepsis Narrative: This is a 73-year-old gentleman who has a history of metastatic colon cancer. He was admitted to the hospital late last week with right flank pain, fevers and chills. He was having gross hematuria. On CT scan, he had right hydronephrosis and nonobstructing kidney stones, but no ureteral stone. It was suspected that he recently passed the ureteral stone. Ultimately, his blood and urine cultures both grew Proteus. A repeat CT showed no residual hydronephrosis after Abraham catheter was placed. He has no history of gout or hyperparathyroidism. He has a history of prostate cancer was treated with a radical prostatectomy nearly 20 years ago. Since his admission he has gradually felt better with his antibiotic treatment. He no longer sees gross hematuria. He still has some right sided flank pain. [facility] All Active Problems (Updated 05/04/24 @ 14:10 by Adarsh Hernandez MD) Hx of colon cancer, stage IV (Acute) Elevated troponin (Acute) Paroxysmal atrial fibrillation (Acute ~05/03/24) Transaminitis (Acute) Thrombocytopenia (Chronic) Hypokalemia due to loss of potassium (Acute) Hypomagnesemia (Acute) Gram negative septic shock (Acute) DVT prophylaxis (Acute) Discharge planning issues (Acute) Hydronephrosis of right kidney (Acute) Urinary tract infection (Acute) Social History Smoking risk assessment performed?: No Alcohol Intake: former Housing: house Exam Narrative Exam Narrative: He appears chronically ill His vital signs are documented elsewhere His abdomen is soft with no guarding or rebound tenderness A Abraham catheter is in place and is draining clear urine He is awake and alert Results Last Vital Signs Temp 36.8 C 05/04/24 04:18 Pulse 68 05/04/24 06:31 Resp 19 05/04/24 06:31 BP 111/59 L 05/04/24 06:31 Pulse Ox 94 05/04/24 06:31 Labs 05/05/24 05:20 05/05/24 05:20 Labs: Laboratory Results - last 24 hr 05/03/24 05/03/24 05/03/24 06:30 11:12 11:14 WBC 5.86 RBC 3.55 L Hgb 9.8 L Hct 30.3 L MCV 85 MCH 27.6 MCHC 32.3 RDW 16.2 H Plt Count 126 L MPV 9.3 Immature Gran % 0.0 Neutrophils % 78.0 Band Neutrophils % 10 Lymphocytes % 7.0 Monocytes % 4.0 Eosinophils % 1.0 Basophils % 0.0 Nucleated RBC % 0.0 Absolute Neutrophils 5.16 Absolute Lymphocytes 0.41 L Absolute Monocytes 0.23 Absolute Eosinophils 0.06 Absolute Basophils 0.00 RBC Morphology Normal PT 10.9 INR 1.1 APTT 36.4 H Fibrinogen 713 H VBG Lactate 2.3 H* Sodium 138 Potassium 3.4 L Chloride 106 Carbon Dioxide 25.0 Anion Gap 7.0 BUN 18 Creatinine 0.9 Est GFR (CKD-EPI 2020) 91.31 Glucose 89 Calcium 7.7 L Magnesium 2.6 H Total Bilirubin 2.6 H AST 83 H ALT 60 Alkaline Phosphatase 186 H Troponin I 306 H* Cancelled 258 H* Total Protein 5.4 L Albumin 1.8 L Add-On Test Request DONE 05/03/24 05/04/24 14:10 05:12 WBC 4.89 RBC 3.48 L Hgb 9.6 L Hct 29.8 L MCV 86 MCH 27.6 MCHC 32.2 RDW 16.5 H Plt Count 121 L MPV 9.9 Immature Gran % 0.0 Neutrophils % 79.0 Band Neutrophils % 3 Lymphocytes % 9.0 Monocytes % 5.0 Eosinophils % 4.0 Basophils % 0.0 Nucleated RBC % 0.0 Absolute Neutrophils 4.01 Absolute Lymphocytes 0.44 L Absolute Monocytes 0.24 Absolute Eosinophils 0.20 Absolute Basophils 0.00 RBC Morphology Normal PT INR APTT Fibrinogen VBG Lactate 1.4 Sodium 140 Potassium 3.8 Chloride 107 Carbon Dioxide 27.1 Anion Gap 5.9 BUN 18 Creatinine 0.9 Est GFR (CKD-EPI 2020) 91.31 Glucose 77 Calcium 7.6 L Magnesium 2.2 Total Bilirubin 3.6 H AST 106 H ALT 61 Alkaline Phosphatase 311 H Troponin I 207 H* 108 H* Total Protein 4.7 L Albumin 1.6 L Add-On Test Request Imaging Additional studies: I reviewed his CT scan from his admission and his repeat CT for 05/02/2024. On his initial presntation, he had right hydronephrosis but no obstructing lesion such as a stone. His repeat CT showed resolution of the hydronephrosis. No prior imaging studies were done at our facility. I did find a report from [place] [facility] [place] that showed his rectal cancer involved multiple pelvic structures including his right seminal vesicle. He has a urine sample result in our system from 04/17/2024 that showed gram negative rods, but given the low colony count, a final C&S was not done. From his current admission, Proteus is growing in both the urine and the blood.
--- NOTE | 2024-05-04 07:30 | DI.US_ITS ---
APPROVED REPORT EXAM: Comprehensive 2D, Doppler, and color-flow Echocardiogram Patient Location: In-Patient Room/Bed: [address] [employer] Electrician: Chang Peter RDCS (AE) Indications: Elevated troponin Conclusion Normal left ventricular wall thickness and chamber size. Ejection fraction is 50 to 55%. There are no segmental wall motion abnormalities. Diastolic function is normal for age Normal right ventricular size and function Both atria are mildly enlarged There are no structural or hemodynamically significant valvular abnormalities Estimated right ventricular systolic pressure is 34 mmHg Wall motion Left Ventricle The left ventricle is normal size. The overall left ventricular systolic function appears normal. The re is normal left ventricular wall thickness. No segmental wall motion abnormalities There is no vent ricular septal defect visualized. LVEF is 50-55% Right Ventricle The right ventricle is normal size. Right ventricular systolic function is grossly normal. Atria Left atrium is mildly dilated. Right atrium is mildly dilated. The interatrial septum is intact with no evidence for an atrial septal defect. Aortic Valve The aortic valve is normal in structure. Aortic valve is trileaflet. There is no aortic valvular sten osis. No aortic regurgitation is present. Mitral Valve The mitral valve is normal in structure. No evidence of mitral valve stenosis. Trace mitral regurgita tion. Tricuspid Valve The tricuspid valve is normal in structure. There is no tricuspid valve stenosis. Mild tricuspid regu rgitation. The RVSP is 34.2 mmHg. Pulmonic Valve The pulmonary valve is normal in structure. There is no pulmonic valvular stenosis. There is no pulmo rod valvular regurgitation. Great Vessels The aortic root is normal in size. The ascending aorta is normal in size. Aortic arch is not well vis ualized. IVC is normal in size and collapses >50% with inspiration. Pericardium There is no pericardial effusion. 2D Dimensions IVSD d PLAX 0.95 cm M: 0.6-1.2 Ao Root d 3.16 cm M: 3.1 - 3.7 LVPW d PLAX 0.87 cm M: 0.6 - 1.2 Ao Asc Diam d 3.43 cm M: 2.6 - 3.4 LVID d PLAX 5.09 cm M: 4.2 - 5.8 LVDs 3.70 cm M: 2.5 - 4.0 LV EF Teichholz 52.9 % FS 27.38 % LV EDV (Teich) 123.2 mL LV ESV (Teich) 58.0 mL Stroke Vol Index (Teich) 29.66 M-Mode TAPSE 2.69 cm (M/F) >1.7 Auto EF LV EDV A4C 154.2 mL LV EDV A2C 132.0 mL LV EDV BP 148.0 mL LV ESV A4C 72.5 mL LV ESV A2C 65.2 mL LV ESV BP 68.6 mL LVEF(%) A4C 53.0 % LVEF(%) A2C 50.6 % LVEF(%) BP 53.6 % LV SV A4C 81.7 ml LV SV A2C 66.8 ml LV SV BP 79.4 ml LV CO A4C 5.1 L/min LV CO A2C 4.2 L/min LV CO BP 4.6 L/min HR A4C 62.72 BPM HR A2C 62.40 BPM LV EDV Index (BP) LA Volume LA Length A4C 7.0 cm LA Length A2C 7.7 cm LA Area A4C s 29.35 cm2 LA Area A2C s 35.56 cm2 LA Vol A4C A-L 104.36 mL LA Vol A2C A-L 139.71 mL LA Vol Biplane A-L 126.4 mL LA Vol/BSA A4C A-L LA Vol/BSA A2C A-L LA Vol/BSA BP A-L 57.5 mL/m2 LA Vol A4C MOD 100.2 mL LA Vol A2C MOD 131.0 mL LA Vol BP MOD 119.5 mL RA Volume RA Area A4C 27.8 cm2 RA ESV A4C (A-L) 113.6mL RA Vol/BSA A4C A-L RA Length A4C 5.8 cm RA ESV A4C (MOD) 108.9mL LV Diastology MV E' medial 0.095 (>0.07 m/s) MV E Vmax 0.75 (0.4-1.3 m/s) MV E/E' MED 7.87 (<14) MV A Vmax 0.70 (0.4-1.3 m/s) MV E' lateral 0.129 (>0.1 m/s) E/A Ratio 1.1 MV E/E' LAT 5.82 (<14) MV E' Average 0.112 m/s MV E/E'(average) 6.69 Aortic Valve AoV Vmax 1.37 m/s LVOT Vmax 1.05 m/s AoV Peak Grad 7.5 mmHg LVOT Peak Grad 4.5 mmHg AoV Area (Vmax) 2.43 cm2 LVOT VTI 0.230 m AoV VTI 0.336 m LVOT Mean Grad 2.3 mmHg AoV Mean Thien. 1.00 m/s LVOT SV 72.54 mL AoV Mean Grad 4.5 mmHg LVOT Diam s 2.00 cm AoV Area (VTI) 2.16 cm2 Velocity Ratio 0.77 Mitral Valve MV DT 183 (160-240 msec) Pulmonary Valve PV Vmax 1.05 (0.5-1.5 m/s) RVOT Vmax 0.66 m/s PV Peak Grad 4.4 mmHg RVOT Peak Gr. 1.7 mmHg PV Mean Thien 0.75 m/s RVOT VTI 0.150 m PV Mean Grad 2.5 mmHg RVOT Mean Gr. 0.8 mmHg Tricuspid Valve RA Pressure 3.00 mmHg TR Vmax 2.79 m/s TR Peak Grad 31.1 mmHg RVSP (TR) 34.2 mmHg
--- NOTE | 2024-05-04 07:32 | W.PALLCONSUL ---
Date of service: 05/04/24 Time of Service: 15:00 [facility] All Active Problems (Updated 05/03/24 @ 17:15 by Hang Corley MD) Paroxysmal atrial fibrillation (Acute ~05/03/24) Transaminitis (Acute) Thrombocytopenia (Chronic) Hypokalemia due to loss of potassium (Acute) Hypomagnesemia (Acute) Gram negative septic shock (Acute) DVT prophylaxis (Acute) Discharge planning issues (Acute) Hydronephrosis of right kidney (Acute) Urinary tract infection (Acute) Social History Smoking risk assessment performed?: No Alcohol Intake: former Housing: house Results Last Vital Signs Temp 98.2 F 05/04/24 04:18 Pulse 68 05/04/24 06:31 Resp 19 05/04/24 06:31 BP 111/59 L 05/04/24 06:31 Pulse Ox 94 05/04/24 06:31 Labs 05/04/24 05:12 05/04/24 05:12 Labs: Laboratory Results - last 24 hr 05/03/24 05/03/24 05/03/24 06:30 11:12 11:14 WBC RBC Hgb Hct MCV MCH MCHC RDW Plt Count MPV Immature Gran % Neutrophils % Band Neutrophils % Lymphocytes % Monocytes % Eosinophils % Basophils % Nucleated RBC % Absolute Neutrophils Absolute Lymphocytes Absolute Monocytes Absolute Eosinophils Absolute Basophils RBC Morphology PT 10.9 INR 1.1 APTT 36.4 H Fibrinogen 713 H VBG Lactate 2.3 H* Sodium Potassium Chloride Carbon Dioxide Anion Gap BUN Creatinine Est GFR (CKD-EPI 2020) Glucose Calcium Magnesium Total Bilirubin AST ALT Alkaline Phosphatase Troponin I 306 H* Cancelled 258 H* Total Protein Albumin Add-On Test Request DONE 05/03/24 05/04/24 14:10 05:12 WBC 4.89 RBC 3.48 L Hgb 9.6 L Hct 29.8 L MCV 86 MCH 27.6 MCHC 32.2 RDW 16.5 H Plt Count 121 L MPV 9.9 Immature Gran % 0.0 Neutrophils % 79.0 Band Neutrophils % 3 Lymphocytes % 9.0 Monocytes % 5.0 Eosinophils % 4.0 Basophils % 0.0 Nucleated RBC % 0.0 Absolute Neutrophils 4.01 Absolute Lymphocytes 0.44 L Absolute Monocytes 0.24 Absolute Eosinophils 0.20 Absolute Basophils 0.00 RBC Morphology Normal PT INR APTT Fibrinogen VBG Lactate 1.4 Sodium 140 Potassium 3.8 Chloride 107 Carbon Dioxide 27.1 Anion Gap 5.9 BUN 18 Creatinine 0.9 Est GFR (CKD-EPI 2020) 91.31 Glucose 77 Calcium 7.6 L Magnesium 2.2 Total Bilirubin 3.6 H AST 106 H ALT 61 Alkaline Phosphatase 311 H Troponin I 207 H* 108 H* Total Protein 4.7 L Albumin 1.6 L Add-On Test Request
--- NOTE | 2024-05-04 08:00 | DI.MRI_ITS ---
Exam(s) MR CERVICAL SPINE WO/W EXAM: MR CERVICAL SPINE WO/W CLINICAL HISTORY: L. arm radiculopathy TECHNIQUE: Multiplanar multisequence MRI of the cervical spine was performed. CONTRAST MATERIAL: IV Contrast: 20 ML of Dotarem contrast administered. COMPARISON: No exams were available for comparison FINDINGS: The examination is limited due to patient motion artifact. BONES: Vertebral body heights are maintained. Intervertebral disc spaces are normal. Alignment is nor mal. Bone marrow signal intensity is within normal limits. CERVICAL CORD: Craniovertebral junction is unremarkable. The cervical cord is normal size and signal intensity. No lesion is present. SOFT TISSUES: Unremarkable. ENHANCEMENT: No suspicious enhancement identified. C2-3: No disc herniation or bulge is identified. No significant central spinal canal or neural forami nal stenosis. C3-4: No disc herniation or bulge is identified. No significant central spinal canal or neural forami nal stenosis C4-5: No disc herniation or bulge is identified. No significant central spinal canal or neural forami nal stenosis C5-6: There is prominence of the osteophyte disc complex and degenerative changes seen in the uncover tebral joints bilaterally. There is no significant central spinal canal stenosis. The findings do r esult in [id number] bilateral neural foraminal stenosis. C6-7: No disc herniation or bulge is identified. No significant central spinal canal or neural forami nal stenosis C7-T1: No disc herniation or bulge is identified. No significant central spinal canal or neural martínez inal stenosis IMPRESSION: 1. Examination compromised by patient motion artifact. 2. Degenerative changes seen at C5-C6 resulting in [id number] bilateral neural foraminal stenos is. 3. No suspicious enhancement is seen following contrast administration. DATA REPOSITORY:
[2024-05-04] MEDS: Aspirin E.C. 81 MG TABEC PO (08:37)
[2024-05-04] MEDS: dilTIAZem 30 MG TAB PO ×2 (08:37→13:45)
[2024-05-04] MEDS: HYDROmorphone 2 MG/ML SYR 1 MG IVP ×3 (09:04→22:34)
--- NOTE | 2024-05-04 09:04 | W.PM.PROGNOT ---
Date of Service Date of service: 05/04/24 Time of Service: 09:04 Assessment and Plan Assessment and plan (1) Gram negative septic shock: Status: Acute Assessment and plan: -patient met criteria for septic shock with HR 137, temp 102.4oF, RR 37, and sorce of infection being obstructing right kidney stone with hydronephrosis that led to Proteus bacteremia, type II NSTEMI -had required levophed on admission which was discontinued as of early AM 05/03/2024 -initial CT showed nephrolithiasis although his renal US 05/[address] did not show any obstruction; consult in for Dr. Cat 05/04 -now D#4 Zosyn, vancomycin dc'ed 05/02 (2) Hydronephrosis of right kidney: Status: Acute Assessment and plan: -appears resolved but will consult w/ Dr. Cat as I think he will need cystoscopy and stent. (3) Urinary tract infection: Status: Acute Assessment and plan: -Proteus in urine and blood. Qualifiers: Urinary tract infection type: acute pyelonephritis Qualified Code(s): N10 - Acute pyelonephritis (4) Hypomagnesemia: Status: Acute Assessment and plan: -2.6 after replacement, continue to monitor (5) Elevated troponin: Status: Acute Assessment and plan: -secondary to type II NSTEMI from septic shock as noted above -TTE showed EF 50-55% and no diastolic dysfunction (6) Hypokalemia due to loss of potassium: Status: Acute Assessment and plan: -will replace and monitor (7) Thrombocytopenia: Status: Chronic Assessment and plan: -probably mild DIC from sepsis (8) Transaminitis: Status: Acute Assessment and plan: -likely d/t his hepatic mets but may be also from shock liver from his hypotension (9) DVT prophylaxis: Status: Acute Assessment and plan: -enoxaparin 40 mg SC daily (10) Hx of colon cancer, stage IV: Status: Acute Assessment and plan: -last chemo two weeks ago -complained of ongoing back/neck pain; MRI cervical spine showed degenerative changes resulting in [id number] bilateral neural foraminal stenosis without suspicious enhancement following contrast admission -patient currently full-code, appreciate palliative care consultation Subjective Subjective Interval history since last seen: Patient states that he is feeling better today. He understands that we are waiting for results of the echocardiogram, and MRI, and that he will see palliative care later today. Otherwise he has no other complaints or concerns at this time. Exam Narrative Exam Narrative: Well appearing gentleman laying in bed in no acute distress, AOx4, heart RRR, lungs CTAB, abdomen soft, non-tender, non-distended Objective Last Vital Signs Temp 98.6 F 05/04/24 07:30 Pulse 71 05/04/24 08:31 Resp 17 05/04/24 08:31 BP 116/65 05/04/24 08:31 Pulse Ox 94 05/04/24 08:31 Laboratory Results - last 24 hr 05/03/24 05/03/24 05/03/24 06:30 11:12 11:14 WBC RBC Hgb Hct MCV MCH MCHC RDW Plt Count MPV Immature Gran % Neutrophils % Band Neutrophils % Lymphocytes % Monocytes % Eosinophils % Basophils % Nucleated RBC % Absolute Neutrophils Absolute Lymphocytes Absolute Monocytes Absolute Eosinophils Absolute Basophils RBC Morphology PT 10.9 INR 1.1 APTT 36.4 H Fibrinogen 713 H VBG Lactate 2.3 H* Sodium Potassium Chloride Carbon Dioxide Anion Gap BUN Creatinine Est GFR (CKD-EPI 2020) Glucose Calcium Magnesium Total Bilirubin AST ALT Alkaline Phosphatase Troponin I 306 H* Cancelled 258 H* Total Protein Albumin Add-On Test Request DONE 05/03/24 05/04/24 14:10 05:12 WBC 4.89 RBC 3.48 L Hgb 9.6 L Hct 29.8 L MCV 86 MCH 27.6 MCHC 32.2 RDW 16.5 H Plt Count 121 L MPV 9.9 Immature Gran % 0.0 Neutrophils % 79.0 Band Neutrophils % 3 Lymphocytes % 9.0 Monocytes % 5.0 Eosinophils % 4.0 Basophils % 0.0 Nucleated RBC % 0.0 Absolute Neutrophils 4.01 Absolute Lymphocytes 0.44 L Absolute Monocytes 0.24 Absolute Eosinophils 0.20 Absolute Basophils 0.00 RBC Morphology Normal PT INR APTT Fibrinogen VBG Lactate 1.4 Sodium 140 Potassium 3.8 Chloride 107 Carbon Dioxide 27.1 Anion Gap 5.9 BUN 18 Creatinine 0.9 Est GFR (CKD-EPI 2020) 91.31 Glucose 77 Calcium 7.6 L Magnesium 2.2 Total Bilirubin 3.6 H AST 106 H ALT 61 Alkaline Phosphatase 311 H Troponin I 207 H* 108 H* Total Protein 4.7 L Albumin 1.6 L Add-On Test Request Time Spent with Patient Time Spent with Patient: >50 minutes Time was spent: preparing to see the patient(eg.review tests), obtaining and/or reviewing separately otained hiistory, ordering medications,tests, procedures, referring, communicating with other health transitions rn care coordinator, indepentently interpreting results, counseling the patient and care coordination
--- NOTE | 2024-05-04 09:11 | CMPROGNOTE_ITS ---
Date of service: 05/04/24 Time of Service: 09:11 Care Management Progress Note Progress Note Text Progress Note Text: S/O: Lizzeth was having an MRI when CM attempted to meet with him. His , Radha was in the room visiting. CM spoke with Radha, who is a former RN who used to own and operate [facility] in [place]. Radha stated that Lizzeth is very independent, and that they both have a very good support system. She reported that she has a neighbor who will help out any time she calls, and they have a daughter who lives nearby that only works patient partner, and is very supportive. She also stated that they have a daughter in [place] who is an RN, as well as a son in [facility] who will travel to help out if needed. Per report, there is a palliative consultation scheduled for today, which Lizzeth is appreciative of. She stated that it is difficult for Lizzeth to talk about, but feels it is important, due to his diagnosis of colon cancer; she stated that he is followed by Dr. Ragsdale who is very supportive. Lizzeth returned from his MRI and was getting set up to eat his lunch, CM briefly checked in with him, but he was preoccupied at the time of the visit. His RN stated that he vomited while having his MRI, which is being attributed to an intolerance to the contrast; this was added to his allergy list by pharmacy. CM will continue to follow. A: Lizzeth is a 73 year old male admitted to [facility] on 05/02/24 for UTI. Discharge Potential Discharge Needs: Consult Consult Services Needed: Palliative and Other (Urology) and PCP F/U Appt Anticipated Barriers to Discharge: Medical Status Patient/Family Education Needs: Review discharge instructions, discuss Ask Me Three Transportation: Private vehicle Plan: Anticipate Pat will return home once medically cleared. He has a very supportive family and does not feel that he will require services at this time. His will drive him home via private vehicle when ready. He will follow up with his PCP and discharge plan of care. CM will continue to follow. SDOH(Care Management) Screening Will the Patient Participate in the Screening?: Declined to provide Do you worry about having a steady place to live?: choose not to answer In the past 12 months, have you had to go without electric, gas, oil or water in your home?: choose not to answer Have you or anyone in your house had to go without enough food to eat?: choose not to answer Has lack of transportation kept you from medical appointments or from doing things needed for daily living?: choose not to answer Has anyone in your support network made you feel unsafe for any reason?: choose not to answer
--- NOTE | 2024-05-04 11:15 | PHA.REVIEW2 ---
Pharmacy Admission Review Admission Clinical Review Admission Pharmacy Review: Elevated troponin (Acute) Transaminitis (Acute) Hypokalemia due to loss of potassium (Acute) Hypomagnesemia (Acute) Gram negative septic shock (Acute) DVT prophylaxis (Acute) Discharge planning issues (Acute) Hydronephrosis of right kidney (Acute) Urinary tract infection (Acute) No Known Allergies Allergy (Verified 05/01/24 15:35) Resuscitation Status Full Code Height 5 ft 9 in Weight 109.1 kg Comments Comments/Follow Ups: Per morning meeting, patient will most likely be transferred to [facility] Pharmacy Admission Review Renal Dosing Renal Dosing: BUN 18 mg/dL (7-18) 05/04/24 05:12 Creatinine 0.9 mg/dL (0.70-1.30) 05/04/24 05:12 Medications needing adjustments: Reviewed (CrCl 82.47 mL/min) List of meds needing interventions: Current medications are okay Anticoagulation Anticoagulation: Hgb 9.6 g/dL (13.5-17.5) L 05/04/24 05:12 Hct 29.8 % (40.0-50.0) L 05/04/24 05:12 Plt Count 121 10^3/uL (130-400) L 05/04/24 05:12 INR 1.1 (0.9-1.1) 05/03/24 11:14 Creatinine 0.9 mg/dL (0.70-1.30) 05/04/24 05:12 DVT Prophylaxis: Reviewed Medications: Enoxaparin (40mg daily) Opiate Usage Evaluate Pain Scale/Pains Meds: Reviewed (PRN hydromorphone - 2 doses given) Scheduled Bowel Reg ordered if on Opiates?: No Relevant Labs Relevant Labs: Sodium 140 mmol/L (136-145) 05/04/24 05:12 Potassium 3.8 mmol/L (3.5-5.1) 05/04/24 05:12 Chloride 107 mmol/L (98-107) 05/04/24 05:12 Magnesium 2.2 mg/dL (1.8-2.4) 05/04/24 05:12 Electrolytes, C-Reactive P, ESR: Reviewed (hgb 9.6, Plt decreased from 126 to 121, AST increased from 83 to 106) Cardiac Review Cardiac Review: Troponin I 108 ng/L (< or =60) H* 05/04/24 05:12 BP, HR, EF%: Reviewed (BP/HR WNL, troponin decreased from 207) QTc Review QTc: Reviewed (480 from 05/03/24) IV to PO Switch IV Medications: Reviewed (Acetaminophen, hydromorphone, meropenem and pantoprazole) Home Meds Home Med List reviewed: Reviewed Relevent Home Meds Not ordered & why?: No know home meds Eliquis was filled 04/27, but is not listed on patients home med list. Does have order for enoxaparin 40mg daily Current Meds Current Medication Order Review: Reviewed Comments: Levophed drip was discontinued yesterday. Discontinue order? Pharmacy Antibiotic Review Relevant Labs: WBC 4.89 10^3/uL (4.4-10.8) 05/04/24 05:12 Procalcitonin 0.5 ng/mL 05/01/24 10:47 Temperature 37.0 C Temperature 36.8 C Temperature 36.8 C Temperature 37.2 C Microbiology 05/01/24 09:40 Urine Culture - Final Urine - Reflex from Ua Proteus mirabilis 05/01/24 11:20 Blood Culture - Final Blood Proteus mirabilis 05/01/24 10:47 Blood Culture - Final Blood Proteus mirabilis Pharmacy Antibiotic Activity: Abx regimen adjustment and C/S review Comments: Patient is on day one of meropenem 2g q8h for UTI/Sepsis. Patient had received 3 days of Zosyn and 1 day of vancomycin, which were discontinued. Urine/blood cultures grew Proteus mirabilis, repeat blood cultures pending. Comments Comments/Follow Ups: Per morning meeting, patient will most likely be transferred to [facility]
[2024-05-04] MEDS: Gadoterate meglumine 20 ML SYRINGE IVP (12:42)
[2024-05-04] MEDS: Pantoprazole 40 MG VIAL IVP (13:47)
[2024-05-04] MEDS: Normal Saline Flush 10 ML SYR IVP ×5 (16:22→23:38)
[2024-05-04] MEDS: traMADol 50 MG TAB PO ×2 (19:21→23:56)
[2024-05-04] MEDS: Lidocaine 2% Jelly 6 ML SYR (23:37)
[2024-05-05] VITALS (7 sets, daily range): BP systolic 113–125; BP diastolic 65–79; PULSE 65–74; RESP 11–18; TEMP 36.5–37.4; O2SAT 88–95
--- NOTE | 2024-05-05 | DI.US_ITS ---
Exam(s) US ABDOMEN LIMITED EXAM: US ABDOMEN LIMITED CLINICAL HISTORY: limited; looking for ascites TECHNIQUE: Ultrasound abdomen performed using standard protocol. COMPARISON: None FINDINGS: This is apparently limited exam looking for the presence of ascites. There is indeed ascites in all 4 quadrants: Right upper quadrant pocket= 5.3 cm Left upper quadrant pocket= 5.1 cm Right lower quadrant pocket= 4.25 cm Left lower quadrant pocket= 2.48 cm IMPRESSION: 1. Study is positive for ascites in all 4 quadrants of the abdomen with pocket measurements as above . DATA REPOSITORY:
[2024-05-05] MEDS: Lactated Ringers 1,000 ML 150 ML IV ×3 (03:33→17:37)
[2024-05-05 06:24] LABS: Abs Immature Grans 0.11 10^3/uL (0.0-0.06); Absolute Basophil Count 0.04 10^3/uL (0.0-0.2); Absolute Eosinophil Count 0.16 10^3/uL (0.0-0.7); Absolute Lymphocyte Count 0.54 10^3/uL (1.2-3.4); Absolute Monocyte Count 0.54 10^3/uL (0.1-0.8); Basophils % 0.7 %; HCT 31.2 % (40.0-50.0); HGB 9.9 g/dL (13.5-17.5); MCH 27.1 pg (27.0-33.0); MCHC 31.7 % (32.0-36.0); MCV 86 fL (80-95); MPV 9.8 fL (8.0-11.0); Neutrophils % 74.3 %; Nucleated RBC 0.4 % (0.0-0.3); Platelet Count 118 10^3/uL (130-400); RBC 3.65 10^6/uL (4.36-5.78); RDW 16.7 % (11.8-14.1); RDW-SD 52.7 fL; WBC 5.39 10^3/uL (4.4-10.8)
[2024-05-05 06:46] LABS: ALT 71 U/L (16-63); AST 125 U/L (15-37); Albumin 1.6 g/dL (3.4-5.0); Alkaline Phosphatase 483 U/L (46-116); Anion Gap 5.6 mmol/L (3-11); BUN 11 mg/dL (7-18); Bilirubin, Total 3.9 mg/dL (0.2-1.0); CO2 27.4 mmol/L (21.0-32.0); CREATININE 0.7 mg/dL (0.70-1.30); Calcium 7.8 mg/dL (8.5-10.1); Chloride 106 mmol/L (98-107); Estimated GFR 98.51 (mL/min/1.73m2); Glucose 79 mg/dL (74-106); Potassium 3.8 mmol/L (3.5-5.1); Sodium 139 mmol/L (136-145); Total Protein 4.9 g/dL (6.4-8.2)
[2024-05-05] MEDS: Normal Saline Flush 10 ML SYR IVP ×5 (07:40→19:43)
[2024-05-05] MEDS: HYDROmorphone 2 MG/ML SYR 1 MG IVP ×2 (07:40→19:42)
[2024-05-05] MEDS: dilTIAZem 30 MG TAB PO ×3 (07:41→19:41)
[2024-05-05] MEDS: Aspirin E.C. 81 MG TABEC PO (07:41)
--- NOTE | 2024-05-05 08:33 | NUR.NOTE ---
PT noted to have removed CPAP at 0800 and was on RA at this time while eating breakfast. PT's o2 noted to be 94% at this time. informed of change during morning rounds. Nursing Note:
--- NOTE | 2024-05-05 08:41 | W.PALLCONSUL ---
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 He was admitted to [facility] 4 days ago with flank pain, urosepsis (Proteus growing out of blood and urine, required pressors for several days) and noted to have hydronephrosis. Shortly after hospital admission, he became hypotensive and showed signs of septic shock, requiring transfer to ICU. Hospitalist team is consulting the palliative care team for help with goals of care discussion. 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 Urology felt he had passed a kidney stone. Additional complications Included NSTEMI by serial troponins (felt due to sepsis). #Rectal cancer: -Diagnosed August 2023. Presenting symptoms were anorectal pain, diarrhea, urgency and rectal bleeding -Metastatic lymph nodes, liver metastasis, osseous metastasis (coccyx), and possible metastatic pulmonary nodules present at the time of diagnosis -Initially started treatment with FOLFOX and panitumumab November 2023. -March 2024 CT showed mixed response to chemo/immunotherapy: Liver lesions increasing in size (up to 12 cm), adenopathy increasing, severeral lesions decreasing in size. Oncology also noted climbing transaminases at mid April visit, going along with increasing liver mets. -Cancer progressed on above treatment. Switch to FOLFIRI/Avastin early March, mid April dose needed to be held because of neutropenia. Restarted about two weeks ago (was due for another treatment Saturday, but sent to ED) -FEELING UNWELL AND NOT LOOKING WELL FOR 2 WEEKS prior to admission. -Peripheral neuropathy on the FOlFox: needs to keep hands warm. Care Team: Primary Care physician: Esther Shay MD ([place], [place]) Oncology: Dr. Ragsdale, [facility] Urology: Dr. Cat (first contact during this hospitalization, has not seen urology previously for his kidney stones anywhere) Social HX: Marital Status: Lives in [facility] with Radha. Together 31 years, only 12 years. 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 Radha says that they do not have a good relationship, first made sure there was not a good relationship. They went to visit in 2016 and one daughter visiting currently. Step-daughter Maureen Galindo (will be alternate HCA) Hobbies: Lyle (was going to be inducted as Amy Valentino, missing class this week in [place]). VERY ACTIVE. -BE[employer]s to [employer], organizeed recent Ride to raise money for [facility] (raised $850), missing Ride to end Cancer next week. raides behind him when biking. -Let's neighbor's dogs in and out. Additional Services: None currently Impression of currents health status: So-so, Over the last few months Having ups and downs. : Hopefully he is going to go home for a while and then..... What bothers you the most: Not knowing what's going on, too many things going on. : Worrying about him. Hoping she can get him home What worries you the most: Making sure that his is going to be alright; worrying more about the intermediate. -: His path ahead is not going to be pleasant. Goals: To do many things: -Participate in [employer], missing multiple activities set up several functions including a special training to be promoted that he had been looking forward to, helping to (had been able to participate up until now). -Ride his [place] three jaimes. (had not ridden since last fall). HAs not felt up to it and has neuropathy from chemo (needs to keep hands warm). : -To get him home -That he does not suffer (pain) -She is hoping that can do the things he wants to do over the summer. Current information preferences: Function: Previous to admission Ambulation: No aids needed ADLs: Was totally independent iADLs: Totally independent Hearing: Fine Vision: No issues Cognition: No issues Falls: None Driving: He has been doing all the driving including driving himself from cancer office to ER to be evaluated day of admission Palliative Performance Scale % Ambulation Activity and Evidence of Disease Self Care Intake Level of Consciousness 100 Full Normal activity, no evidence of disease Full Normal Full 90 Full Normal activity, some evidence of disease Full Normal Full 80 Full Normal activity with effort, some evidence of disease Full Normal or reduced Full 70 Reduced Unable to do normal work, some evidence of disease Full Normal or reduced Full 60 Reduced Unable to do hobby or some housework, significant disease Occasional assist necessary Normal or reduced Full or confusion 50 Mainly sit/lie Unable to do any work, extensive disease Considerable assistance required Normal or reduced Full or confusion 40 Mainly in bed Unable to do any work, extensive disease Mainly assistance Normal or reduced Full, drowsy, or confusion 30 Totally bed bound Unable to do any work, extensive disease Total care Reduced Full, drowsy, or confusion 20 Totally bed bound Unable to do any work, extensive disease Total care Minimal sips Full, drowsy, or confusion 10 Totally bed bound Unable to do any work, extensive disease Total care Mouth care only Drowsy or coma 0 - - - - Patient Score: 70 Spiritual history: Not answered Palliative review of systems: Pain: Prior to development of flank pain, denies pain (unclear whether peripheral neuropathy was painful rather than just annoying) Dyspnea: None prior to admission GI symptoms: Was continuing to have some intermittent blood in stools Appetite: Slightly returning today Depression: Denies Anxiety: None Emotional Distress: Spiritual/Existential Distress: Denies Labs: Cr: 0.7 (0.7?1.2) Liver panel: Bilirubin 3.6 (basically normal up until this last admission, slowly increasing during admission), AST 4 times normal, ALT twice normal, alk phos up to 483 INR: 1.1 Albumin: 1.6 (2.8?3.0 prior to admission) CBC: Hemoglobin 9.9 (no anemia previous to this admission) CEA has been followed: 2.09 August 2023, up to 5.December, steadily decreasing to 2.1 Apr 17 2024 Advanced Care Planning: Advanced Directive: No form on file, they have multiple blank forms at home, they want to fill and out but never seem to get around to it. Health Care Agent: Filled out today: Radha Mireles (), alternate stepdaughter Maureen Galindo. COLST: Full code prior to today. COLST completed today 05/05/2024: DNR/++Trial of intubation, Yes to pressors, +ICU, +IV abx and IV fluids. Limitations: Assessment and Plan Assessment and plan (1) Anal cancer: Status: Acute Assessment and plan: Mr. Mireles is a 73-year-old gentleman with stage IV adenocarcinoma of the rectum with large liver met, smaller liver and pelvic lymph node mets, osseous mets to coccyx/sacrum who had been undergoing second line chemo/immunotherapy at the cancer center. Now with episode of urosepsis with positive blood cultures requiring ICU admission and pressors. This was likely triggered by passage of a kidney stone. Of note he has also had markedly elevated liver function tests, which is mostly new for him since his admission, and could be due to liver mets, or Hemolysisrelated to sepsis or multifactorial. had noted that for 2 weeks prior to hospitalization, he seemed the weakest he had been since diagnosis in the fall. This started after his most recent round of chemotherapy. Phone call today with his oncologist Dr. Trevon Ragsdale. We discussed what options were available to patient going forward. Unfortunately his CT scan done here is the only 1 in our institution[address]. Ragsdale will have [facility] radiology compare our CT with [facility] CT from early March. If tumor burden not significantly increased from then, he would recommend resuming chemo/immunotherapy after period of recovery. However if the cancer has progressed on current chemotherapy, he is not sure there is another regimen to offer the patient. #Goals of care: Mr. 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 If his oncologist thinks he can prolong the amount or quality of his life by resuming chemotherapy, he would like to do that. His hopes he gets well enough to return home. She is looking further down the road and hopes that he is as comfortable as possible for the last part of his life. However she agrees that she does not think he is ready for hospice. What they would like to do is get through this hospital admission, return home and have Mr. Mireles recuperate and hopefully regain his strength. They look forward to meeting again with Dr. Ragsdale to regroup and reevaluate and see what is recommended going forward. They understand that likely appointment with oncology scheduled for 2 days from now will be canceled and rescheduled for 2 to 4 weeks after discharge to allow him time to recuperate. Health Care Agent form: Completed today: Radha is HCA. Patient elects to designate his stepdaughter Crista as alternate, as his daughters live far away in [place]. He did at his daughter's to the list of people who may participate in the decision. Limitations of life-prolonging treatment: Discussion of whether There are any life-prolonging treatments that would not make sense given his goals. 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 He volunteered that it was often futile to do CPR on some people. We discussed the procedure of CPaR, actual mechanical process, rate of success in restoring heartbeat, short and long-term side effects in survivors (including likely decreased physical and cognitive functioning). After consideration, Mr. Mireles feels strongly that he would not want CPR done. However if he had respiratory failure from an infection, he would want a trial of intubation no more than a week. He does not mind that he was in the ICU or got pressors. He would be happy to do this again if indicated in the future. He definitely wants IV fluids and antibiotics as indicated. A COLST form was completed and signed reflecting these visits. #Family discord: describes that patient's first has created separation and discord between the patient and his daughters and granddaughters. Patient himself does not seem to be upset about this. However they then both mention that they have been seeing daughters and granddaughters more often and actually 1 daughter from [place] is here visiting him. Patient is close to his 's children. Sounds like the patient and his children and grandchildren are working on repairing the relationship. Supportive counseling #Caregiver stress: cries several times during my visit. She says she is a crier . She is retired nurse who used to run a [employer]. Sounds like there is a supportive family between children, stepchildren,Both of their siblings locally, and I note that a friend from the [place] is visiting as I leave them. Supportive counseling today. #Future plans: Patient understands that his current chemo and immunotherapy is palliative with the goal of prolonging the length and quality of his remaining life. The concept of hospice introduced and discussed and explained. Discussed that in the future there will come a point where Mr. Mireles would no longer be a candidate for, or elect to no longer pursue life-prolonging therapy. At that point I would advocate that he consider enrolling in hospice sooner rather than later. We discussed the advantages of being on hospice, hoping that he would still be able to be active and that the hospice team would support him and his with having him pursue his goals is much as possible, aggressively manage his symptoms, etc. Questions answered. Patient and his are not ready for hospice now but seemed relieved to find out more about it. Follow-up: We would happily follow-up with patient either in the office or via telehealth as an outpatient or will follow-up with him in the hospital if he is still there. We are happy to see him and his again if requested sooner. 16 to 30 minutes spent today on Advance Care Planning. Patient and family participated voluntarily. Advance care planning may include (not limited to) explanation and discussion of advance directives, choosing and appointing healthcare agents, alternatives to various ACP tools, discussion of (and if indicated, completion of) COLST form, discussion of patient's values and overall goals for treatment, palliative and disease directive care options, ways to avoid hospital readmission including hospice discussions, care preferences should the patient's several other adverse health events.See today's palliative care note for additional information. This note was dictated using speech recognition software. Attempt was made at proofreading, but errors may be present. Please call with questions. (2) Metastases to the liver: Status: Acute (3) Metastatic bone tumor: Status: Acute (4) Gram negative septic shock: Status: Acute (5) History of pulmonary embolism: Status: Acute (6) Palliative care patient: Status: Acute (7) Advanced care planning/counseling discussion: Status: Acute (8) DNR (do not resuscitate): Status: Acute PFSH All Active Problems (Updated 05/05/24 @ 12:06 by Ruby Maldonado MD) DNR (do not resuscitate) (Acute) ++Trial of intubation, Yes to pressors, +ICU, +IV abx and IV fluids. See 05/05/2024 COLST Advanced care planning/counseling discussion (Acute) Palliative care patient (Acute) History of pulmonary embolism (Acute) Multiple PE on December 2023 CT scan Metastatic bone tumor (Acute) Metastases to the liver (Acute) Anal cancer (Acute) Hx of colon cancer, stage IV (Acute) Elevated troponin (Acute) Paroxysmal atrial fibrillation (Acute ~05/03/24) Transaminitis (Acute) Thrombocytopenia (Chronic) Hypokalemia due to loss of potassium (Acute) Hypomagnesemia (Acute) Gram negative septic shock (Acute) DVT prophylaxis (Acute) Discharge planning issues (Acute) Hydronephrosis of right kidney (Acute) Urinary tract infection (Acute) Social History Smoking risk assessment performed?: No Alcohol Intake: former Housing: house Exam Narrative Exam Narrative: Pleasant, tired appearing elderly gentleman laying in bed. Mild to moderately jaundiced. No oxygen on. No dyspnea. Able to speak in complete sentences. Actually seems better and less fatigued as my visit progressed. Abdomen is protuberant, tympanitic to percussion most of the way. No tenderness to palpation and no masses. Results Last Vital Signs Temp 37.0 C 05/05/24 06:22 Pulse 74 05/05/24 06:22 Resp 16 05/05/24 06:22 BP 119/79 05/05/24 06:22 Pulse Ox 92 05/05/24 08:11 Labs 05/05/24 05:20 05/05/24 05:20 Labs: Laboratory Results - last 24 hr 05/05/24 05:20 WBC 5.39 RBC 3.65 L Hgb 9.9 L Hct 31.2 L MCV 86 MCH 27.1 MCHC 31.7 L RDW 16.7 H Plt Count 118 L MPV 9.8 Immature Gran % 2.0 Neutrophils % 74.3 Lymphocytes % 10.0 Monocytes % 10.0 Eosinophils % 3.0 Basophils % 0.7 Nucleated RBC % 0.4 H Absolute Neutrophils 4.00 Absolute Lymphocytes 0.54 L Absolute Monocytes 0.54 Absolute Eosinophils 0.16 Absolute Basophils 0.04 Sodium 139 Potassium 3.8 Chloride 106 Carbon Dioxide 27.4 Anion Gap 5.6 BUN 11 Creatinine 0.7 Est GFR (CKD-EPI 2020) 98.51 Glucose 79 Calcium 7.8 L Total Bilirubin 3.9 H AST 125 H ALT 71 H Alkaline Phosphatase 483 H Total Protein 4.9 L Albumin 1.6 L
--- NOTE | 2024-05-05 09:09 | W.PM.PROGNOT ---
Date of Service Date of service: 05/05/24 Time of Service: 09:09 Assessment and Plan Assessment and plan (1) Gram negative septic shock: Status: Acute Assessment and plan: -patient met criteria for septic shock with HR 137, temp 102.4oF, RR 37, and sorce of infection being obstructing right kidney stone with hydronephrosis that led to Proteus bacteremia, type II NSTEMI -had required levophed on admission which was discontinued as of early AM 05/03/2024 -initial CT showed nephrolithiasis although his renal US 05/[address] did not show any obstruction; consult in for Dr. Cat 05/04 as noted below -s/p 5 days Zosyn, vancomycin dc'ed 05/02 -started PO cefpodoxime for additional 5 days (2) Hydronephrosis of right kidney: Status: Acute Assessment and plan: -appears resolved, discussed with Dr. Cat who agrees, but did offer patient ureteral stent which he declined at this time (3) Urinary tract infection: Status: Acute Assessment and plan: -Proteus in urine and blood. Qualifiers: Urinary tract infection type: acute pyelonephritis Qualified Code(s): N10 - Acute pyelonephritis (4) Hypomagnesemia: Status: Acute Assessment and plan: -2.6 after replacement, continue to monitor (5) Elevated troponin: Status: Acute Assessment and plan: -secondary to type II NSTEMI from septic shock as noted above -TTE showed EF 50-55% and no diastolic dysfunction (6) Hypokalemia due to loss of potassium: Status: Acute Assessment and plan: -will replace and monitor (7) Thrombocytopenia: Status: Chronic Assessment and plan: -probably mild DIC from sepsis (8) Transaminitis: Status: Acute Assessment and plan: -likely d/t his hepatic mets but may be also from shock liver from his hypotension (9) DVT prophylaxis: Status: Acute Assessment and plan: -enoxaparin 40 mg SC daily (10) Hx of colon cancer, stage IV: Status: Acute Assessment and plan: -last chemo two weeks ago -complained of ongoing back/neck pain; MRI cervical spine showed degenerative changes resulting in [id number] bilateral neural foraminal stenosis without suspicious enhancement following contrast admission -patient currently full-code, appreciate palliative care consultation and recs (please see Palliative Care note) -images reviewed by patients Oncologist who believes that liver mets are stable, but that abdominal lymph nodes and tj lesions appears worse as compared to previous -patient has scheduled appt with Oncology on which he will keep Subjective Subjective Interval history since last seen: Patient states that he is doing better today However he does have abdominal distention. I told him I would have a general surgery review his ultrasound today to consider paracentesis. He also understands that he has been transition to oral antibiotic and given that he worked well with physical therapy today would likely be discharged home with home with PT tomorrow. Exam Narrative Exam Narrative: Well appearing gentleman laying in bed in no acute distress, AOx4, heart RRR, lungs CTAB, abdomen soft, non-tender, increased abdominal distention as compared to previous day with positive fluid wave Objective Last Vital Signs Temp 98.6 F 05/05/24 06:22 Pulse 74 05/05/24 06:22 Resp 16 05/05/24 06:22 BP 119/79 05/05/24 06:22 Pulse Ox 92 05/05/24 08:11 Laboratory Results - last 24 hr 05/05/24 05:20 WBC 5.39 RBC 3.65 L Hgb 9.9 L Hct 31.2 L MCV 86 MCH 27.1 MCHC 31.7 L RDW 16.7 H Plt Count 118 L MPV 9.8 Immature Gran % 2.0 Neutrophils % 74.3 Lymphocytes % 10.0 Monocytes % 10.0 Eosinophils % 3.0 Basophils % 0.7 Nucleated RBC % 0.4 H Absolute Neutrophils 4.00 Absolute Lymphocytes 0.54 L Absolute Monocytes 0.54 Absolute Eosinophils 0.16 Absolute Basophils 0.04 Sodium 139 Potassium 3.8 Chloride 106 Carbon Dioxide 27.4 Anion Gap 5.6 BUN 11 Creatinine 0.7 Est GFR (CKD-EPI 2020) 98.51 Glucose 79 Calcium 7.8 L Total Bilirubin 3.9 H AST 125 H ALT 71 H Alkaline Phosphatase 483 H Total Protein 4.9 L Albumin 1.6 L Time Spent with Patient Time Spent with Patient: >50 minutes Time was spent: preparing to see the patient(eg.review tests), obtaining and/or reviewing separately otained hiistory, ordering medications,tests, procedures, referring, communicating with other health pediatric critical care nurse, indepentently interpreting results, counseling the patient and care coordination
--- NOTE | 2024-05-05 09:24 | CMPROGNOTE_ITS ---
Date of service: 05/05/24 Time of Service: 09:24 Care Management Progress Note Progress Note Text Progress Note Text: S/O: Lizzeth was meeting with Palliative Care when CM attempted to meet with him this morning. Later in the day when CM returned he was having an ultrasound. Lizzeth was admitted with sepsis secondary to hydronephrosis with an associated Uti. He has Proteus mirabilis growing in both blood and urine cultures and is receiving Meropenem to treat them. Lizzeth's vital signs are within normal limits and he is afebrile. Today Dr. Maldonado from Palliative Care met with Lizzeth and Radha to address goals of care. He has rectal cancer with metastasis to liver and bone. He had been receiving palliative chemotherapy until the development of sepsis and remained a full code. During the consultation, Lizzeth was able to name Radha as his healthcare agent and to change his code status to DNR. He would still want a trial of intubation and aggressive treatment incluiding ICU level of care, pressors, IV fluids and antibiotics. A: Lizzeth is a 73 year old male admitted to [facility] on 05/02/24 for UTI. Discharge Potential Discharge Needs: Consult Consult Services Needed: Palliative and Other (Urology) and PCP F/U Appt Anticipated Barriers to Discharge: Medical Status Patient/Family Education Needs: Review discharge instructions, discuss Ask Me Three Transportation: Private vehicle Plan: Anticipate Lizzeth will return home once medically cleared. He has a very supportive family and does not feel that he will require services at this time. His will drive him home via private vehicle when ready. He will follow up with his PCP and discharge plan of care. CM will continue to follow. SDOH(Care Management) Screening Will the Patient Participate in the Screening?: Declined to provide Do you worry about having a steady place to live?: choose not to answer In the past 12 months, have you had to go without electric, gas, oil or water in your home?: choose not to answer Have you or anyone in your house had to go without enough food to eat?: choose not to answer Has lack of transportation kept you from medical appointments or from doing things needed for daily living?: choose not to answer Has anyone in your support network made you feel unsafe for any reason?: choose not to answer
[2024-05-05] MEDS: Pantoprazole 40 MG VIAL IVP (12:16)
[2024-05-05] MEDS: traMADol 50 MG TAB PO ×2 (13:01→18:48)
--- NOTE | 2024-05-05 13:22 | NUR.NOTE ---
Brought pt from ICu to room 207 at 1220. and friend present. C/o pain in left shoulder at 03/11, tramadol given, declined aqua K pad at this time. Will monitor. Nursing Note:
--- NOTE | 2024-05-05 13:40 | NUR.NOTE ---
Assisted PT with pt, using walker. Pt got his legs OOB on his own, stood with little help and walked 5 steps before getting dizzy, assisted back to bed. PT doing bed exercises with pt currently. Nursing Note:
--- NOTE | 2024-05-05 14:02 | IN_ITS ---
PT Notes Visit Reasons: Urinary tract infection Physical Therapy Inpatient Initial Evaluation Date: 05/05/24 Referring Doctor: Adarsh Hernandez PT Orders: PT CONSULT: Eval and treat Precautions: Fall. Standard. Activity as tolerated. Patient Profile/Admitting Diagnosis: Tristin is 73 yo male that presented to the ER on 05/03/24 for right flank pain and abnormal labs with blood in urine. He is in stage 4 rectal cancer with liver mets. Was having flank pain. Last chemo treatment was two weeks ago. Ongoing neck and back pain. MRI shows degenerative joint disease. Was in ICU with septic shock from UTI. Did have elevated troponins. Has been transferred to medical floor. New onset of left shoulder pa in with difficulty elevating arm. PMHX: See EMR Social History/Home Situation: Lives with in single level home. 4 steps to enter (4 x3, 8 x1). Independent at baseline and was participating in outpatient PT in [place] for balance. Use of cane intermittently with onset of back spasms in March. Equipment Owned/DME: Cane, FWW Subjective: Cleared by nursing to see patient and patient is agreeable to PT. Patient is propped upright in bed at time of consult and collins catheter and port with IV connection. Objective: General Observation: Sitting up in bed Mental Status: A&O x3 Pain: Left shoulder, no pain rating provided ROM: Right Upper Extremity: Shoulder Flexion WFL. Shoulder abduction WFL. Elbow flexion WFL. Wrist flexion WFL. Opening and closing of hand WFL. Left Upper Extremity: Shoulder Flexion severely limited and painful. Shoulder abduction severely limited and painful. Elbow flexion WFL. Wrist flexion WFL. Opening and closing of hand WFL. Right Lower Extremity: Hip flexion WFL. Hip abduction WFL. Knee flexion WFL. Ankle dorsiflexion WFL. Ankle plantarflexion WFL. Left Lower Extremity: Hip flexion WFL. Hip abduction WFL. Knee flexion WFL. Ankle dorsiflexion WFL. Ankle plantarflexion WFL. Strength: Right Upper Extremity: Grossly 4+/5 Left Upper Extremity: Grossly 4+/5 Right Lower Extremity: Grossly 4/5 Left Lower Extremity: Grossly 4/5 Sensation: Intact as to pain and pressure on bilateral lower extremities. Bed Mobility/Transfers: Supine to sit: From upright HOB, supervision Sit to supine: To upright HOB, min A with leg Sit to stand: CGA Stand to sit: CGA Gait: Ambulated in room 5 feet away from bed and back with FWW - reports light headed and tired in legs Stairs: Not assessed Balance: Static Sitting: Normal Dynamic Sitting: Good Static Standing: Good Dynamic Standing: Poor Therapeutic Activity (11641) dynamic movement and functional strengthening to improve physical performance: 15 minutes Bed mobility Ambulation with FWW Instructed in left shoulder AAROM supporting with right arm or using cane Discussed maintaining activation in legs and arms in bed, can request to sit edge of bed or chair with meal Special Tests: Mobility Limitations Standardized Measure [facility] AM-PAC 6 clicks Basic Mobility Inpatient Short Form: Raw Score: 13 CMS Score: 65% Informed Consent/Education: Patient instructed in purpose of PT consult and plan of care. Assessment: Tristin demonstrates notable deconditioning and fatigue after ICU admission and septic two days ago. He was able to do bed mobility and sit to stand with predominately stand by assist. Ambulation short distance with FWW caused lightheadedness and fatigue in legs. New onset of left shoulder pain. Normal PROM. Limited AROM due to pain. Tenderness around left shoulder joint. Recommend icing the shoulder or using heat and ice contrast. Nursing notified. He will likely demonstrate steady progressive gains and should be safe to return home when medically discharged. Dependent on tolerance at that time will dictate home health services versus return to outpatient PT. Patient presents with clinical signs and symptoms consistent with current/admitting diagnoses that have resulted to mobility limitations, gait instability, generalized weakness, and impairment of motor control as demonstrated by the following impairment level findings: 1. Decreased strength to all major muscle groups 2. Impaired sitting/standing balance 3. Impaired activity tolerance 4. Limitation of joint active range of motion in left shoulder Impairments are contributing to the following functional limitations: 1. Increased dependence with transfers 2. Inability to safely ambulate without assistive device and physical assistance 3. Increase completion time for mobility ADL performance 4. Increased fall risk 5. Inability to negotiate steps alone safely Patient is assessed as a Moderate complexity based on the following: History: 73 year old male with impairment level findings, functional limitations, and past medical history as indicated above Examination: Demonstrable impairment in strength, balance, and mobility level with underlying impairments and functional limitations as documented above Presentation: Evolving Decision Making: Moderate complexity Goals: Goals x1 week 1. Supine-Sit: independent 2. Sit-Supine: independent 3. Sit-Stand: independent 4. Stand-Sit: independent 5. Bed-Chair: independent 6. Chair-Bed: independent 7. Independent gait on level surface with use of least restrictive device for at least 100 feet without report of pain nor dyspnea 8. Good static and dynamic standing balance/tolerance 9. Independent stair negotiation while holding onto bilateral rails for at least 4 steps without report of pain nor dyspnea Plan of Care/Treatment Plan: 1-2x/day, 7 days/week x1 week. Plan of care has been reviewed with the BAR TACKER SEWING MACHINE providing the service under Physical Therapy direction. Initiate Physical Therapy intervention for strengthening, bed mobility, transfers, gait, stairs, balance training, and use of assistive device. Discharge Plan DISCHARGE RECOMMENDATIONS: Home with no services Home with home health services versus return to outpatient PT based on tolerance level at time of medical discharge TREATMENT CODE/TIME: 13:28-13:56 (28 minutes), [id number], [id number] Thank you for the opportunity to participate in the care of this patient. Radha Arias, PT, DPT, OCS [facility] [place], [place]
--- NOTE | 2024-05-05 15:56 | CHAPLAIN ---
Lizzeth was resting in bed and had recently been moved out of the ICU, when I visited. His , Radha was with him. Radha said she was relieved to be out of the ICU. Lizzeth has rectal cancer with mets to his liver and is getting chemo therapy, according to Dr. Maldonado's Palliative Care note from today. Lizzeth was tired when I visited, and looking forward to resting. I explained my role and offered support. Both he and Radha were pleasant and engaged in a conversation. According to Dr. Maldonado's notes, Radha is listed as Lizzeth's HCA, and Radha's daughter is the second agent. Lizzeth has two daughters from a previous marriage, who both live at a distance. Lizzeth completed a COLST form today and declined CPR and agreed to a trial of intubation. His goal now is to return home and resume some of his usual activities like attending [employer] meetings and activities, and riding his motorcycle. He and Radha live in [place]. 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
[2024-05-05] MEDS: Cefpodoxime 200 MG TAB PO (19:41)
[2024-05-05] MEDS: Enoxaparin 40 MG/0.4 ML SYR SC (19:42)
[2024-05-05] MEDS: Acetaminophen 325 MG TAB 650 MG PO (22:04)
[2024-05-06] MEDS: Lactated Ringers 1,000 ML 150 ML IV ×2 (00:24→07:31)
[2024-05-06 03:47] VITALS: BP 141/72; PULSE 77; RESP 18; TEMP 36.5; O2SAT 96
[2024-05-06] MEDS: Acetaminophen 325 MG TAB 650 MG PO ×2 (04:17→10:34)
[2024-05-06] MEDS: HYDROmorphone 2 MG/ML SYR 1 MG IVP (05:00)
[2024-05-06 07:12] VITALS: BP 116/75; PULSE 76; RESP 18; TEMP 36.7; O2SAT 94
[2024-05-06] MEDS: dilTIAZem 30 MG TAB PO ×2 (07:33→13:47)
[2024-05-06] MEDS: Aspirin E.C. 81 MG TABEC PO (07:33)
[2024-05-06] MEDS: Cefpodoxime 200 MG TAB PO (07:33)
[2024-05-06] MEDS: Normal Saline Flush 10 ML SYR IVP (07:35)
--- NOTE | 2024-05-06 08:06 | SCONE_ITS ---
Date of service: 05/06/24 Time of Service: 10:00 Assessment and Plan Assessment and plan (1) Ascites: Status: Acute Assessment and plan: 73-year-old man with some ascites after heavy fluid resuscitation efforts and in the setting of stage IV metastatic cancer. He does not need diagnostic paracentesis for sure. The only indication for draining his ascites is for palliative care purposes. In the absence of any significant abdominal discomfort (both subjectively as well as on exam) I do not see any strong indication to perform paracentesis. The patient himself states if it is not necessary, then I do not want it done. Further, when discussing palliative care scenarios, and why we would drain the ascites because of pain, he states well it definitely does not need to be done then since I am not in any pain right now. Overall recommendation: Palliative paracentesis can be considered at any point. I gave the patient the recommendation to call our office and schedule at any given moment in time if his ascites becomes a symptomatic, painful issue. We would be happy to schedule him for drainage with very short notice. I actually think probably this is a lot of fluid just because of the resuscitation efforts and is probably going to slowly go away on its own is my guess. No paracentesis for now, at patient's wishes/discretion. Call us back if anything changes. History of Present Illness Narrative: Patient is a 73-year-old man with stage IV, metastatic colon cancer. He is in the hospital after being septic from a kidney stone. That issue has since resolved. He got a lot of IV fluid resuscitation. He developed some abdominal distention relatively abruptly per report. The question is whether or not he needs ascites drained or not. At the bedside the patient denies any abdominal pain. He says he has mild, chronic, daily discomfort but that there is no acute pain at the moment. He does not think he needs the fluid drained off and asks me is it necessary to do it? PFSH All Active Problems (Updated 05/06/24 @ 14:02 by Vladimir Thomas MD) Ascites (Acute) DNR (do not resuscitate) (Acute) ++Trial of intubation, Yes to pressors, +ICU, +IV abx and IV fluids. See 05/05/2024 [facility] Advanced care planning/counseling discussion (Acute) Palliative care patient (Acute) History of pulmonary embolism (Acute) Multiple PE on December 2023 CT scan Metastatic bone tumor (Acute) Metastases to the liver (Acute) Anal cancer (Acute) Hx of colon cancer, stage IV (Acute) Elevated troponin (Acute) Paroxysmal atrial fibrillation (Acute ~05/03/24) Transaminitis (Acute) Thrombocytopenia (Chronic) Hypokalemia due to loss of potassium (Acute) Hypomagnesemia (Acute) Gram negative septic shock (Acute) DVT prophylaxis (Acute) Discharge planning issues (Acute) Hydronephrosis of right kidney (Acute) Urinary tract infection (Acute) Social History Smoking risk assessment performed?: No Alcohol Intake: former Housing: house Exam Narrative Exam Narrative: General: Nontoxic, comfortable and interactive Neuro: Alert and oriented x 3 Psych: Upbeat mood and affect, good insight and understanding. Abdomen: Soft, distended, no tenderness anywhere. Results Last Vital Signs Temp 98.1 F 05/06/24 07:12 Pulse 76 05/06/24 07:12 Resp 18 05/06/24 07:12 BP 116/75 05/06/24 07:12 Pulse Ox 94 05/06/24 07:12 Labs 05/05/24 05:20 05/05/24 05:20
--- NOTE | 2024-05-06 09:22 | PDOC.CMPRO ---
Date of service: 05/06/24 Time of Service: 09:22 Care Management Progress Note Progress Note Text Progress Note Text: S/O: Pat A: Pat is a 73 year old male admitted to [facility] on 05/02/24 for UTI. Discharge Potential Discharge Needs: Consult, PCP F/U Appt and Other (Urology) Anticipated Barriers to Discharge: None Identified Patient/Family Education Needs: Review discharge instructions, discuss Ask Me Three Transportation: Private vehicle Plan: Anticipate Lizzeth will return home once medically cleared. He has a very supportive family and does not feel that he will require services at this time. His will drive him home via private vehicle when ready. He will follow up with his PCP and discharge plan of care. CM will continue to follow. SDOH(Care Management) Screening Will the Patient Participate in the Screening?: Declined to provide Do you worry about having a steady place to live?: choose not to answer In the past 12 months, have you had to go without electric, gas, oil or water in your home?: choose not to answer Have you or anyone in your house had to go without enough food to eat?: choose not to answer Has lack of transportation kept you from medical appointments or from doing things needed for daily living?: choose not to answer Has anyone in your support network made you feel unsafe for any reason?: choose not to answer
[2024-05-06 11:04] VITALS: BP 111/65; PULSE 72; RESP 18; TEMP 36; O2SAT 97
--- NOTE | 2024-05-06 12:07 | PDOC.CMDIS ---
Date of service: 05/06/24 Time of Service: 12:07 LACE Index Scoring Tool Questions: Length of Stay (in days): 4 - 6 Was the patient admitted via the E.D.?: Yes Comorbidities: Metastatic Solid Tumor E.D. Visits: 1 Answers: Total Score: 13 Risk of Readmission: High Risk Care Management Discharge Plan Reason for Hospitalization: UTI with bacteremia Discharge Plan: Pat will be discharged home with no new services. He will follow up with his Oncology team and PCP and transport with his . Patient/Family Education Needs: Review of discharge instructions , activity, limitations, follow up plan, discuss Ask Me Three SDOH Health Related Social Needs: No Data to Display
--- NOTE | 2024-05-06 12:26 | PDOC.HHF2F_ITS ---
Home Health Referral Home Health Orders Clinical synopsis of why skilled professionals are needed: Metastatic colon CA, weakness, recent septic shock due to obstructing kidney stone Registered Nurse: Check all that apply Instruct on new or changed medication(s)/assess compliance: Ordered Assess for exacerbation of medical condition, instruct patient/caregivers on signs and symptoms to report for early detection: Ordered Physical Therapist: Check all that apply Increase strength & endurance for safe mobility at home: Ordered To design/establish home maintenance program: Ordered Fall reduction therapy program for patient with history of frequent falls: Ordered Home safety evaluation and teaching/gait training including stair management (if applicable): Ordered Encounter Date and Reason: I certify that a FTF encounter for this patient was performed on May 06, 2024 and that such encounter was related to the primary reason the patient requires home health services. The encounter was conducted in the following manner: * By me as the certifying physician, WOOD PROCESSING WORKER, PA or * By an inpatient physician, WOOD PROCESSING WORKER or PA during an inpatient stay who communicated findings to me, Certification And Authentication I certify that I composed the above information based on my clinical judgment relating to this patient's medical condition and, if applicable, clinical findings communicated to me by the NPP or inpatient physician who performed the FTF encounter. Name of Provider that will be monitoring home health services: Erick Perez
--- NOTE | 2024-05-06 12:28 | DSE_ITS ---
Date of service: 05/06/24 Time of Service: 12:39 DS: Diagnosis Discharge Diagnosis (1) Gram negative septic shock: Status: Acute Asessment and Plan: -patient met criteria for septic shock with HR 137, temp 102.4oF, RR 37, and sorce of infection being obstructing right kidney stone with hydronephrosis that led to Proteus bacteremia, type II NSTEMI -had required levophed on admission which was discontinued as of early AM 05/03/2024 -initial CT showed nephrolithiasis although his renal US 05/[address] did not show any obstruction; consult in for Dr. Cat 05/04 as noted below -s/p 5 days Zosyn, vancomycin dc'ed 05/02 -started PO cefpodoxime for additional 5 days (2) Hydronephrosis of right kidney: Status: Acute Asessment and Plan: -appears resolved, discussed with Dr. Cat who agrees, but did offer patient ureteral stent which he declined at this time (3) Urinary tract infection: Status: Acute Asessment and Plan: -as noted above (4) Hypomagnesemia: Status: Acute Asessment and Plan: -repleated (5) Elevated troponin: Status: Acute Asessment and Plan: -secondary to Type II NSTEMI due to septic shock as noted above (6) Hypokalemia due to loss of potassium: Status: Acute Asessment and Plan: -repleated (7) Thrombocytopenia: Status: Chronic (8) Transaminitis: Status: Acute Asessment and Plan: -secondary to metastatic disease as discussed below (9) DVT prophylaxis: Status: Acute (10) Hx of colon cancer, stage IV: Status: Acute Asessment and Plan: -last chemo two weeks ago -complained of ongoing back/neck pain; MRI cervical spine showed degenerative changes resulting in [id number] bilateral neural foraminal stenosis without suspicious enhancement following contrast admission -patient was full-code, appreciate palliative care consultation. patient now DNR with trial intubation -images reviewed by patients Oncologist who believes that liver mets are stable, but that abdominal lymph nodes and tj lesions appears worse as compared to previous -patient has scheduled appt with Oncology on which he will keep Discharge Plan Disposition Patient Disposition: Home W/Home Health Services Condition: Good Discharge Details Reason For Visit: UTI Admit Date/Time: 05/02/24 16:47 Admit Provider: Hang Corley Attending Provider: Hang Corley Primary Care Provider: Erick Perez Hospital Course Hospital Course: Patient presented with septic shock secondary to initially obstructing ureteral stone to cause hydronephrosis but passed spontaneously. Also resulted and Proteus bacteremia for which patient was initially treated with Zosyn and transition for an additional 5 days of p.o. cefpodoxime based on sensitivities. Additionally, patient was found to have worsening metastatic adenocarcinoma in his abdomen will have close follow-up with his oncologist at discharge. Home Meds and New Rx's Prescriptions: New cefpodoxime 200 mg Tablet 200 mg PO BID Qty: 10 0RF diltiazem HCl [Cardizem] 30 mg Tablet 30 mg PO TID Qty: 90 0RF aspirin 81 mg Tablet,Delayed Release (Dr/Ec) 81 mg PO DAILY Qty: 90 0RF Discharge Instructions Activity:: Activity as Tolerated Equipment/Supplies:: No Equipment Needed Diet:: As Tolerated Discharge Orders Discharge Orders: Discharge Order (Routine); Ordered 05/06/24 Ordered By: Adarsh Hernandez DS: Summary Time Spent with Patient providing and/or coordinating discharge services: Greater than 30 minutes Status at Discharge Functional status at discharge: independent ambulation Overall status at discharge: patient is back to baseline Mental Status: mental status grossly normal Speech and Movement: speech and movement normal Mood: congruent mood Affect: normal affect Quality:SDOH Health Related Social Needs: No Data to Display Exam Narrative Exam Narrative: Well appearing gentleman laying in bed in no acute distress, AOx4, heart RRR, lungs CTAB, abdomen soft, non-tender, increased abdominal distention as compared to previous day with positive fluid wave Psych Mental Status: mental status grossly normal Speech and Movement: speech and movement normal Mood: congruent mood Affect: normal affect DS: Data Vitals/I&O Vitals and I&O: Vital Signs Temperature 96.8 F L 05/06/24 11:04 Temperature Source Temporal Artery Scan 05/06/24 11:04 Pulse 72 05/06/24 11:04 Pulse Rhythm Regular 05/06/24 07:45 Pulse 69 05/05/24 01:00 Respiratory Rate 18 05/06/24 11:04 Respiratory Effort Labored 05/06/24 07:45 Respiratory Depth Shallow 05/06/24 07:45 Respiratory Pattern Normal 05/06/24 07:45 Blood Pressure 111/65 05/06/24 11:04 Blood Pressure Mean 81 05/04/24 23:14 Blood Pressure Position Supine 05/04/24 04:18 Pulse Oximetry 97 05/06/24 11:04 Oxygen Delivery Method Room Air 05/06/24 11:04 Oxygen Flow Rate 0 05/06/24 11:04 Fraction of Inspired Oxygen (FIO2) 21 05/04/24 23:45 Pain Level 1 05/06/24 11:04 Comment home Cpap being utilized 05/05/24 06:22 Intake & Output 05/05/24 05/06/24 05/06/24 17:59 05:59 17:59 Intake Total 3135 / 3135 1953.083 / 5088.083 1000 / 1000 Output Total 1050 / 1050 1000 / 2050 550 / 550 Balance 2084 / 2084 953.083 / 3038.083 450 / 450 Weight 245 lb 2.464 oz 242 lb 8.136 oz Intake: IV 2295 / 2295 1953.083 / 4248.083 1000 / 1000 Oral 840 / 840 Output: Urine 1050 / 1050 1000 / 2050 550 / 550 Other: Urine Color Dark Charu Light Charu Yellow Urine Appearance Clear Clear Clear Urine Odor Normal Comment pt has collins, it was replaced during shift mechanic and is patent and draining orange urine at this time. Data Completed and Pending Labs on day of discharge: Preliminary micro results at discharge 05/03/24 18:10 Blood Culture - Preliminary Blood NO GROWTH 48 HOURS 05/03/24 18:05 Blood Culture - Preliminary Blood NO GROWTH 48 HOURS PFSH All Active Problems (Updated 05/06/24 @ 12:26 by Adarsh Hernandez MD) DNR (do not resuscitate) (Acute) ++Trial of intubation, Yes to pressors, +ICU, +IV abx and IV fluids. See 05/05/2024 [facility] Advanced care planning/counseling discussion (Acute) Palliative care patient (Acute) History of pulmonary embolism (Acute) Multiple PE on December 2023 CT scan Metastatic bone tumor (Acute) Metastases to the liver (Acute) Anal cancer (Acute) Hx of colon cancer, stage IV (Acute) Elevated troponin (Acute) Paroxysmal atrial fibrillation (Acute ~06/02/24) Transaminitis (Acute) Thrombocytopenia (Chronic) Hypokalemia due to loss of potassium (Acute) Hypomagnesemia (Acute) Gram negative septic shock (Acute) DVT prophylaxis (Acute) Discharge planning issues (Acute) Hydronephrosis of right kidney (Acute) Urinary tract infection (Acute) Social History Smoking risk assessment performed?: No Alcohol Intake: former Housing: house Time Spent with Patient Time Spent with Patient: <45 minutes Time was spent: preparing to see the patient(eg.review tests), obtaining and/or reviewing separately otained hiistory, ordering medications,tests, procedures, referring, communicating with other health foster care therapist, indepentently interpreting results, counseling the patient and care coordination
--- NOTE | 2024-05-06 14:15 | PT.INNT ---
PT Notes Visit Reasons: Urinary tract infection pt DC to home.
== END 2024-05-06 14:27 | disposition home health service (06) | DRG 871 ==
LOC: ER 13:28 → ICU 05-03 04:34 → MS 05-03 04:34 → ICU 05-04 18:15 → MS 05-05 12:36
PROVIDERS: Emergency Medicine; Nurse Practitioner Family; Admitting Provider Internal Medicine; Emergency Provider Physician Assistant; PCP Internal Medicine; Visit Provider Internal Medicine
DX: I21.A1 Myocardial infarction type 2 (principal); A41.50 Gram-negative sepsis, unspecified; R65.21 Severe sepsis with septic shock; N10 Acute pyelonephritis; C78.7 Secondary malignant neoplasm of liver and intrahepatic bile duct; C79.51 Secondary malignant neoplasm of bone; R18.8 Other ascites; N13.6 Pyonephrosis; C20 Malignant neoplasm of rectum; C77.2 Secondary and unspecified malignant neoplasm of intra-abdominal lymph nodes; Z66 Do not resuscitate; E87.6 Hypokalemia; E83.42 Hypomagnesemia; R74.01 Elevation of levels of liver transaminase levels; D69.6 Thrombocytopenia, unspecified; B96.4 Proteus (mirabilis) (morganii) as the cause of diseases classified elsewhere; M48.02 Spinal stenosis, cervical region; R31.0 Gross hematuria; Z86.711 Personal history of pulmonary embolism; Z79.899 Other long term (current) drug therapy; Z85.46 Personal history of malignant neoplasm of prostate; Z87.442 Personal history of urinary calculi
CPT/HCPCS: 00123; 36410; 36415; 36591; 76775; 80048; 80053; 80076; 83690; 84145; 85027; 85384; 87040; 87077; 93306; 93308; 96361; 96365; 96366; 96367; 96372; 96375; 96376; 97162; 97530; 99222; 99285; J1650; 72156; 74176; 74178; 76705; 80202; 81003; 81015; 82378; 83605; 83735; 84484; 85025; 85610; 85730; 87086; 87186; 93005; 93010; 94760; 99233; 99238; 99291; J0131; J0696; J1170; J1885; J2185; J2405; J2470; J2543; J3370; J3372; J3475; J3480; J3490